=== PATIENT | female | born 1985 | race Hispanic/Latino ===

== ENCOUNTER 2018-06-16 11:19 | Day surgery (SDC) | payer OTHER, MEDICAID, SELFPAY ==
[2018-06-16] VITALS (12 sets, daily range): BP systolic 93–148; BP diastolic 52–72; PULSE 55–101; RESP 10–18; TEMP 36.1–36.8; O2SAT 96–100; BMI 24.0
--- NOTE | 2018-06-16 | PATH_ITS ---
[facility] Accession Number: [id number] . 01 Material submitted: . APPENDIX . 02 Diagnosis: Appendix: Acute appendicitis. MRV/06/18/2018 . 02 Electronically signed: . Lui Trinidad MD, Pathologist NPI- [id number] . 01 Gross description: . Received in formalin, labeled appendix, is an intact appendix (length-4.9 cm, diameter-0.7 cm) with crystal-pink smooth shiny serosa and attached mesoappendix (up to 1.3 cm in depth). The resection margin is received stapled. The lumen contains red-brown solid soft material. The wall is up to 0.2 cm thick. No nodules, masses or lesions are identified. The resection margin is inked black. Section code: (A1) resection margin en face and three additional serial sections; (A2) one-half of the bivalved tip. ([id number]) /MRV . 02 Pathologist provided ICD-10: K35.80 . 02 CPT . 857574 Performed at: 01 [facility] [address] [place] [address], [place], [place] [id number] MD [place] MD Phone: [phone] [facility]formed at: 02 [facility] [address] [place], [place] [id number] MD Yossi Holloway MD Phone: [phone]
[2018-06-16 12:05] LABS: Alanine Aminotransferase 29 IU/L (9-52); Albumin 4.6 g/dL (3.5-5.0); Albumin Globulin Ratio 1.8 (1.0-2.8); Alkaline Phosphatase 40 U/L (38-126); Aspartate Aminotransferase 26 IU/L (14-36); Bilirubin Total 0.8 mg/dL (0.2-1.3); Blood Urea Nitrogen 15 mg/dL (7-17); Calcium 9.6 mg/dL (8.4-10.2); Carbon Dioxide 21 mmol/L (22-32); Chloride 103 mmol/L (98-107); Estimated Glomerular Filt Rate > 60.0 mL/min (>60); Globulin 2.6 g/dL (1.7-4.1); Glucose 111 mg/dL (70-100); HEMOLYSIS < 15 (0-50); Lipase 147 U/L (23-300); Potassium 3.2 mmol/L (3.4-5.1); Sodium 143 mmol/L (137-145); Total Protein 7.2 g/dL (6.3-8.2)
--- NOTE | 2018-06-16 12:05 | ED_ITS ---
HPI - Abdominal Pain <RIDGE Sheffield - Last Filed: 06/16/18 22:36> General Chief Complaint: Abdominal Pain Stated Complaint: STOMACH PAIN/HANDS AND ARMS GOING NUMB Time Seen by Provider: 06/16/18 12:02 Source: patient Mode of arrival: ambulatory Limitations: no limitations History of Present Illness HPI narrative: 32-year-old female with history of asthma that is a nonsmoker here for complaint of having abdominal pain with nausea vomiting and diarrhea that started yesterday. She reports last bowel movement was yesterday and was diarrhea. She denies any urinary symptoms. She denies any stressors relievers of her pain. She does report that she had some numbness and tingling in her hands as she was hyperventilating due to the pain. She denies any fevers. Decreased p.o. intake today due to the nausea and vomiting. No chest pain no shortness of breath MD complaint: abdominal pain Related Data Home Medications Medication Instructions Recorded Confirmed albuterol sulfate [Ventolin HFA] 1 puff INH DIRECTED #0 ea 06/16/16 06/16/18 Previous Rx's Medication Instructions Recorded fluticasone [Flovent HFA] 1 puff INH BID #1 inh 06/16/16 Allergies Allergy/AdvReac Type Severity Reaction Status Date / Time No Known Drug Allergies Allergy Verified 06/16/18 11:32 Review of Systems <RIDGE Sheffield - Last Filed: 06/16/18 22:36> Constitutional Denies chills, Denies fever(s), Denies lethargy and Denies weakness Eyes Denies change in vision, Denies eye discharge, Denies irritation and Denies loss of vision ENT Ears, Nose, Mouth, and Throat: Denies change in voice, Denies neck pain and Denies sore throat Cardiovascular Denies chest pain, Denies irregular heart rhythm, Denies lightheadedness, Denies palpitations, Denies dyspnea, Denies dyspnea on exertion and Denies orthopnea Respiratory Denies cough, Denies dyspnea, Denies dyspnea on exertion and Denies wheezing Gastrointestinal Gastrointestinal: Reports abdominal pain, Reports diarrhea and Reports vomiting Genitourinary Denies hematuria, Denies flank pain, Denies urinary incontinence and Denies urinary urgency Musculoskeletal Denies neck pain Integumentary/Breasts Denies pruritus, Denies erythema, Denies rash and Denies wounds Neurologic Denies confusion, Denies loss of vision and Denies weakness Psychiatric Denies anxiety, Denies confusion, Denies depression, Denies homicidal ideation and Denies suicidal ideation Endocrine Denies palpitations Hematologic/Lymphatic Denies easy bruising Allergic/Immunologic Denies wheezing Exam <RIDGE Sheffield - Last Filed: 06/16/18 22:36> Initial Vital Signs Initial Vital Signs: Vital Signs Temperature 98.1 F 06/16/18 11:30 Pulse Rate 96 H 06/16/18 11:30 Respiratory Rate 18 06/16/18 11:30 Blood Pressure 148/72 H 06/16/18 11:30 Pulse Oximetry 100 06/16/18 11:30 Const General: cooperative and well developed Nutritional Appearance: well nourished Orientation: alert, awake, oriented x3 and not confused HENMT Mouth: oral mucosae normal and moist mucous membranes Eyes Conjunctivae: conjunctivae normal Sclera: sclerae normal Pupils: PERRL EOM: EOM intact bilaterally Resp Effort & Inspection: normal respiratory effort, able to speak in complete sentences, no respiratory distress and no use of accessory muscles Auscultation: clear to auscultation bilaterally, no rales, no rhonchi and no wheezes Cardio Rate: regular rate Rhythm: regular rhythm Heart Sounds: no click, no gallops, no murmurs and no rubs GI Other: Generalized abdominal pain with pain greater to upper abdomen General: No CVA tenderness Skin General: no rashes or lesions noted, No jaundice and No petechiae Neuro General: alert, oriented x3, gait normal and no focal motor deficits Speech: speech normal <Hari Cruz DO - Last Filed: 06/17/18 07:21> Initial Vital Signs Initial Vital Signs: Vital Signs Temperature 98.1 F 06/16/18 11:30 Pulse Rate 96 H 06/16/18 11:30 Respiratory Rate 18 06/16/18 11:30 Blood Pressure 148/72 H 06/16/18 11:30 Pulse Oximetry 100 06/16/18 11:30 Course <RIDGE Sheffield - Last Filed: 06/16/18 22:36> Orders Ordered: Docusate Sodium (Colace) 100 mg PO BID PRN PRN Reason: Constipation Enoxaparin Sodium (Lovenox) 40 mg SUBCUT DAILY MIO Hydromorphone HCl (Dilaudid) 1 mg IV Q4HR PRN PRN Reason: Pain, Severe (7-10) Last Admin: 06/16/18 23:36 Dose: 1 mg Admin: 06/16/18 18:02 Dose: 1 mg Lactated Ringer's (Lactated Ringers) 1,000 mls @ 100 mls/hr IV CONT MIO Last Admin: 06/16/18 18:02 Dose: 100 mls/hr Piperacillin/Tazobactam/Dextrose (Zosyn) 3.375 gm in 50 mls @ 100 mls/hr IV Q6H MIO Last Infusion: 06/17/18 02:45 Dose: 0 mls/hr Admin: 06/17/18 02:03 Dose: 100 mls/hr Infusion: 06/16/18 21:05 Dose: 100 mls/hr Admin: 06/16/18 20:33 Dose: 100 mls/hr Oxycodone/Acetaminophen (Percocet 5/325) 1 tab PO Q3H PRN PRN Reason: Pain, Moderate (4-6) Last Admin: 06/17/18 06:53 Dose: 1 tab Admin: 06/17/18 00:47 Dose: 1 tab Admin: 06/16/18 20:34 Dose: 1 tab Pantoprazole Sodium (Protonix) 40 mg IV DAILY MIO Discontinued Medications Albuterol (Ventolin) 2.5 mg INH NOW PRN PRN Reason: Coughing, Wheezing, Dyspnea Bupivacaine HCl (Sensorcaine 0.5% (Pf)) 30 ml INJ NOW ONE Stop: 06/16/18 16:30 Last Admin: 06/16/18 16:33 Dose: 20 ml Fentanyl (Sublimaze) 50 mcg IV Q5MIN PRN PRN Reason: Pain, Moderate (4-6) Hydromorphone HCl (Dilaudid) 1 mg IV NOW ONE Stop: 06/16/18 12:21 Last Admin: 06/16/18 12:37 Dose: 1 mg Hydromorphone HCl (Dilaudid) 0.5 mg IV Q5MIN PRN PRN Reason: Pain, Moderate (4-6) Sodium Chloride (Normal Saline 0.9%) 1,000 mls @ 1,000 mls/hr IV BOLUS ONE Stop: 06/16/18 12:52 Last Infusion: 06/16/18 13:53 Dose: 0 mls/hr Admin: 06/16/18 12:08 Dose: 1,000 mls/hr Piperacillin/Tazobactam/Dextrose (Zosyn) 3.375 gm in 50 mls @ 100 mls/hr IV NOW ONE Stop: 06/16/18 14:22 Last Infusion: 06/16/18 14:43 Dose: 0 mls/hr Admin: 06/16/18 14:16 Dose: 100 mls/hr Lactated Ringer's (Lactated Ringers) 1,000 mls @ 42 mls/hr IV CONT MIO Last Infusion: 06/16/18 17:23 Dose: 0 mls/hr Admin: 06/16/18 15:45 Dose: 42 mls/hr Lidocaine/Epinephrine (Xylocaine 1% W/Epi) 4 ml INJ NOW ONE Stop: 06/16/18 16:30 Last Admin: 06/16/18 16:30 Dose: 20 ml Meperidine HCl (Demerol) 25 mg IV Q5MIN PRN PRN Reason: Pain or shivering Metoclopramide HCl (Reglan) 10 mg IV NOW PRN PRN Reason: Nausea And Vomiting Ondansetron HCl (Zofran) 4 mg IV NOW ONE Stop: 06/16/18 11:42 Last Admin: 06/16/18 12:08 Dose: 4 mg Ondansetron HCl (Zofran) 4 mg IV NOW PRN PRN Reason: Nausea And Vomiting Oxycodone/Acetaminophen (Percocet 5/325) 1 tab PO Q30MIN PRN PRN Reason: Mild or moderate pain Vital Signs - 8 hr 06/17/18 00:46 06/17/18 05:12 Temperature 98.1 F 98.0 F Pulse Rate 56 L 62 Respiratory Rate 15 15 Blood Pressure 103/64 114/52 L Pulse Oximetry 98 99 <Hari Cruz DO - Last Filed: 06/17/18 07:21> Orders Ordered: Docusate Sodium (Colace) 100 mg PO BID PRN PRN Reason: Constipation Enoxaparin Sodium (Lovenox) 40 mg SUBCUT DAILY [facility] Hydromorphone HCl (Dilaudid) 1 mg IV Q4HR PRN PRN Reason: Pain, Severe (7-10) Last Admin: 06/16/18 23:36 Dose: 1 mg Admin: 06/16/18 18:02 Dose: 1 mg Lactated Ringer's (Lactated Ringers) 1,000 mls @ 100 mls/hr IV CONT MIO Last Admin: 06/16/18 18:02 Dose: 100 mls/hr Piperacillin/Tazobactam/Dextrose (Zosyn) 3.375 gm in 50 mls @ 100 mls/hr IV Q6H MIO Last Infusion: 06/17/18 02:45 Dose: 0 mls/hr Admin: 06/17/18 02:03 Dose: 100 mls/hr Infusion: 06/16/18 21:05 Dose: 100 mls/hr Admin: 06/16/18 20:33 Dose: 100 mls/hr Oxycodone/Acetaminophen (Percocet 5/325) 1 tab PO Q3H PRN PRN Reason: Pain, Moderate (4-6) Last Admin: 06/17/18 06:53 Dose: 1 tab Admin: 06/17/18 00:47 Dose: 1 tab Admin: 06/16/18 20:34 Dose: 1 tab Pantoprazole Sodium (Protonix) 40 mg IV DAILY MIO Discontinued Medications Albuterol (Ventolin) 2.5 mg INH NOW PRN PRN Reason: Coughing, Wheezing, Dyspnea Bupivacaine HCl (Sensorcaine 0.5% (Pf)) 30 ml INJ NOW ONE Stop: 06/16/18 16:30 Last Admin: 06/16/18 16:33 Dose: 20 ml Fentanyl (Sublimaze) 50 mcg IV Q5MIN PRN PRN Reason: Pain, Moderate (4-6) Hydromorphone HCl (Dilaudid) 1 mg IV NOW ONE Stop: 06/16/18 12:21 Last Admin: 06/16/18 12:37 Dose: 1 mg Hydromorphone HCl (Dilaudid) 0.5 mg IV Q5MIN PRN PRN Reason: Pain, Moderate (4-6) Sodium Chloride (Normal Saline 0.9%) 1,000 mls @ 1,000 mls/hr IV BOLUS ONE Stop: 06/16/18 12:52 Last Infusion: 06/16/18 13:53 Dose: 0 mls/hr Admin: 06/16/18 12:08 Dose: 1,000 mls/hr Piperacillin/Tazobactam/Dextrose (Zosyn) 3.375 gm in 50 mls @ 100 mls/hr IV NOW ONE Stop: 06/16/18 14:22 Last Infusion: 06/16/18 14:43 Dose: 0 mls/hr Admin: 06/16/18 14:16 Dose: 100 mls/hr Lactated Ringer's (Lactated Ringers) 1,000 mls @ 42 mls/hr IV CONT MIO Last Infusion: 06/16/18 17:23 Dose: 0 mls/hr Admin: 06/16/18 15:45 Dose: 42 mls/hr Lidocaine/Epinephrine (Xylocaine 1% W/Epi) 4 ml INJ NOW ONE Stop: 06/16/18 16:30 Last Admin: 06/16/18 16:30 Dose: 20 ml Meperidine HCl (Demerol) 25 mg IV Q5MIN PRN PRN Reason: Pain or shivering Metoclopramide HCl (Reglan) 10 mg IV NOW PRN PRN Reason: Nausea And Vomiting Ondansetron HCl (Zofran) 4 mg IV NOW ONE Stop: 06/16/18 11:42 Last Admin: 06/16/18 12:08 Dose: 4 mg Ondansetron HCl (Zofran) 4 mg IV NOW PRN PRN Reason: Nausea And Vomiting Oxycodone/Acetaminophen (Percocet 5/325) 1 tab PO Q30MIN PRN PRN Reason: Mild or moderate pain Vital Signs - 8 hr 06/17/18 00:46 06/17/18 05:12 Temperature 98.1 F 98.0 F Pulse Rate 56 L 62 Respiratory Rate 15 15 Blood Pressure 103/64 114/52 L Pulse Oximetry 98 99 MDM - Abdominal Pain <RIDGE Sheffield - Last Filed: 06/16/18 22:36> Lab Data Result diagrams: 06/16/18 10:46 06/16/18 10:46 Lab Results 06/16/18 06/16/18 06/16/18 Range/Units 10:46 10:46 10:46 WBC 23.4 H (4.5-11.0) X10^3/uL RBC 4.44 (4.0-5.2) X10^6/uL Hgb 13.8 (12.0-16.0) g/dL Hct 41.4 (36-46) % MCV 93.2 (80-100) fL MCH 31.0 (26-34) PG MCHC 33.3 (30-36) % RDW 12.8 (11.6-14.8) % Plt Count 363 (150-400) X10^3/uL Neut % (Auto) 74.1 (50-75) % Lymph % (Auto) 20.1 L (25-40) % [place] % (Auto) 5.1 (3-14) % Eos % (Auto) 0.3 L (2-4) % Baso % (Auto) 0.4 (0-2) % Neut # (Auto) 50063 H (3430-3734) /uL PT 12.7 (10.1-12.7) SECONDS INR 1.2 (0.9-1.3) APTT 25 L (26.4-36.2) SECONDS Sodium 143 (137-145) mmol/L Potassium 3.2 L (3.4-5.1) mmol/L Chloride 103 (98-107) mmol/L Carbon Dioxide 21 L (22-32) mmol/L BUN 15 (7-17) mg/dL Creatinine 0.60 (0.52-1.04) mg/dL Estimated GFR > 60.0 (>60) mL/min BUN/Creatinine Ratio 25.0 H (6-22) Glucose 111 H (70-100) mg/dL Calcium 9.6 (8.4-10.2) mg/dL Total Bilirubin 0.8 (0.2-1.3) mg/dL AST 26 (14-36) IU/L ALT 29 (9-52) IU/L Alkaline Phosphatase 40 (38-126) U/L Total Protein 7.2 (6.3-8.2) g/dL Albumin 4.6 (3.5-5.0) g/dL Globulin 2.6 (1.7-4.1) g/dL Albumin/Globulin Ratio 1.8 (1.0-2.8) Lipase 147 (23-300) U/L Urine RBC (0-5/HPF) Urine WBC (0-5/HPF) Amorphous Sediment Urine Bacteria (None) Ur Culture Indicated? Micro UA Comment 06/16/18 Range/Units 13:15 WBC (4.5-11.0) X10^3/uL RBC (4.0-5.2) X10^6/uL Hgb (12.0-16.0) g/dL Hct (36-46) % MCV (80-100) fL MCH (26-34) PG MCHC (30-36) % RDW (11.6-14.8) % Plt Count (150-400) X10^3/uL Neut % (Auto) (50-75) % Lymph % (Auto) (25-40) % [place] % (Auto) (3-14) % Eos % (Auto) (2-4) % Baso % (Auto) (0-2) % Neut # (Auto) (9867-9853) /uL PT (10.1-12.7) SECONDS INR (0.9-1.3) APTT (26.4-36.2) SECONDS Sodium (137-145) mmol/L Potassium (3.4-5.1) mmol/L Chloride (98-107) mmol/L Carbon Dioxide (22-32) mmol/L BUN (7-17) mg/dL Creatinine (0.52-1.04) mg/dL Estimated GFR (>60) mL/min BUN/Creatinine Ratio (6-22) Glucose (70-100) mg/dL Calcium (8.4-10.2) mg/dL Total Bilirubin (0.2-1.3) mg/dL AST (14-36) IU/L ALT (9-52) IU/L Alkaline Phosphatase (38-126) U/L Total Protein (6.3-8.2) g/dL Albumin (3.5-5.0) g/dL Globulin (1.7-4.1) g/dL Albumin/Globulin Ratio (1.0-2.8) Lipase (23-300) U/L Urine RBC None seen (0-5/HPF) Urine WBC None seen (0-5/HPF) Amorphous Sediment 2+ Urine Bacteria None seen (None) Ur Culture Indicated? Cult not indicated Micro UA Comment Not Reportable Point of care testing: Point of Care Testing Test Results Negative Urine Dip Bedside Urine Glucose Negative Bedside Urine Bilirubin - Negative Bedside Urine Ketone +++ 80 Urine Specific [place] 1.020 Bedside Urine Occult Blood +/- Bedside Urine pH 7.5 Bedside Urine Protein +/- 15 Bedside Urine Urobilinogen - Negative Bedside Urine Nitrite - Negative Bedside Urine Leukocytes - Negative Esterase ECG Data Interpretation: EKG shows sinus bradycardia with no ST elevation or depression. No ectopy. Ventricular rate of 46. Pr interval of 140. QRS duration 97. QT of 506. MDM Narrative Medical decision making narrative: CBC shows elevated white count. Chem panel was obtained and was unremarkable. CT of the abdomen was obtained and shows signs of appendicitis with possible small starting abscess adjacent to the appendix. Discussed case with Dr. Jt laguerre who plans on taking patient to OR. She was started on Zosyn in the emergency room. <Hari Cruz, - Last Filed: 06/17/18 07:21> Lab Data Lab Results 06/16/18 06/16/18 06/16/18 Range/Units 10:46 10:46 10:46 WBC 23.4 H (4.5-11.0) X10^3/uL RBC 4.44 (4.0-5.2) X10^6/uL Hgb 13.8 (12.0-16.0) g/dL Hct 41.4 (36-46) % MCV 93.2 (80-100) fL MCH 31.0 (26-34) PG MCHC 33.3 (30-36) % RDW 12.8 (11.6-14.8) % Plt Count 363 (150-400) X10^3/uL Neut % (Auto) 74.1 (50-75) % Lymph % (Auto) 20.1 L (25-40) % [place] % (Auto) 5.1 (3-14) % Eos % (Auto) 0.3 L (2-4) % Baso % (Auto) 0.4 (0-2) % Neut # (Auto) 30854 H (3951-9774) /uL PT 12.7 (10.1-12.7) SECONDS INR 1.2 (0.9-1.3) APTT 25 L (26.4-36.2) SECONDS Sodium 143 (137-145) mmol/L Potassium 3.2 L (3.4-5.1) mmol/L Chloride 103 (98-107) mmol/L Carbon Dioxide 21 L (22-32) mmol/L BUN 15 (7-17) mg/dL Creatinine 0.60 (0.52-1.04) mg/dL Estimated GFR > 60.0 (>60) mL/min BUN/Creatinine Ratio 25.0 H (6-22) Glucose 111 H (70-100) mg/dL Calcium 9.6 (8.4-10.2) mg/dL Total Bilirubin 0.8 (0.2-1.3) mg/dL AST 26 (14-36) IU/L ALT 29 (9-52) IU/L Alkaline Phosphatase 40 (38-126) U/L Total Protein 7.2 (6.3-8.2) g/dL Albumin 4.6 (3.5-5.0) g/dL Globulin 2.6 (1.7-4.1) g/dL Albumin/Globulin Ratio 1.8 (1.0-2.8) Lipase 147 (23-300) U/L Urine RBC (0-5/HPF) Urine WBC (0-5/HPF) Amorphous Sediment Urine Bacteria (None) Ur Culture Indicated? Micro UA Comment 06/16/18 Range/Units 13:15 WBC (4.5-11.0) X10^3/uL RBC (4.0-5.2) X10^6/uL Hgb (12.0-16.0) g/dL Hct (36-46) % MCV (80-100) fL MCH (26-34) PG MCHC (30-36) % RDW (11.6-14.8) % Plt Count (150-400) X10^3/uL Neut % (Auto) (50-75) % Lymph % (Auto) (25-40) % [place] % (Auto) (3-14) % Eos % (Auto) (2-4) % Baso % (Auto) (0-2) % Neut # (Auto) (1611-5201) /uL PT (10.1-12.7) SECONDS INR (0.9-1.3) APTT (26.4-36.2) SECONDS Sodium (137-145) mmol/L Potassium (3.4-5.1) mmol/L Chloride (98-107) mmol/L Carbon Dioxide (22-32) mmol/L BUN (7-17) mg/dL Creatinine (0.52-1.04) mg/dL Estimated GFR (>60) mL/min BUN/Creatinine Ratio (6-22) Glucose (70-100) mg/dL Calcium (8.4-10.2) mg/dL Total Bilirubin (0.2-1.3) mg/dL AST (14-36) IU/L ALT (9-52) IU/L Alkaline Phosphatase (38-126) U/L Total Protein (6.3-8.2) g/dL Albumin (3.5-5.0) g/dL Globulin (1.7-4.1) g/dL Albumin/Globulin Ratio (1.0-2.8) Lipase (23-300) U/L Urine RBC None seen (0-5/HPF) Urine WBC None seen (0-5/HPF) Amorphous Sediment 2+ Urine Bacteria None seen (None) Ur Culture Indicated? Cult not indicated Micro UA Comment Not Reportable Point of care testing: Point of Care Testing Test Results Negative Urine Dip Bedside Urine Glucose Negative Bedside Urine Bilirubin - Negative Bedside Urine Ketone +++ 80 Urine Specific [place] 1.020 Bedside Urine Occult Blood +/- Bedside Urine pH 7.5 Bedside Urine Protein +/- 15 Bedside Urine Urobilinogen - Negative Bedside Urine Nitrite - Negative Bedside Urine Leukocytes - Negative Esterase Discharge Plan Departure Patient Disposition: Admitted As Inpatient Clinical Impression: Acute appendicitis Discharge Date/Time: 06/16/18 14:43 Interventions: ED Discharge Assessment Last Done: 06/16/18 14:42 Admit Date/Time: 06/16/18 14:17 Admit Provider: Ashley Waters <Hari Cruz DO - Last Filed: 06/17/18 07:21> [facility] Attending [place] Attestation: I was available for consultation during this patient's emergency department encounter
[2018-06-16 12:06] LABS: Add Manual Diff / Slide Review NO; Basophils Percent Auto 0.4 % (0-2); Eosinophils Percent Auto 0.3 % (2-4); Hematocrit 41.4 % (36-46); Hemoglobin 13.8 g/dL (12.0-16.0); INR 1.2 (0.9-1.3); Lymphocytes Percent Auto 20.1 % (25-40); Mean Corpuscular HGB Conc 33.3 % (30-36); Mean Corpuscular Volume 93.2 fL (80-100); Monocytes Percent Auto 5.1 % (3-14); Neutrophils Absolute Auto 17300 /uL (3000-5900); Neutrophils Percent Auto 74.1 % (50-75); Platelet Count 363 X10^3/uL (150-400); Prothrombin Time 12.7 SECONDS (10.1-12.7); Red Blood Cell Count 4.44 X10^6/uL (4.0-5.2); Red Cell Distribution Width 12.8 % (11.6-14.8); White Blood Cell Count 23.4 X10^3/uL (4.5-11.0)
[2018-06-16] MEDS: ONDANSETRON 4 MG/2 ML INJ IV (12:08)
[2018-06-16] MEDS: SODIUM CHLORIDE 0.9% 1,000 ML 1000 ML IV (12:08)
[2018-06-16 12:09] LABS: PTT Partial Thromboplastin Tim 25 SECONDS (26.4-36.2)
[2018-06-16] MEDS: HYDROMORPHONE 1 MG INJ IV ×3 (12:37→23:36)
--- NOTE | 2018-06-16 13:04 | DI.CT.S_ITS ---
PROCEDURE: CT ABDOMEN PELVIS W CON INDICATIONS: Abdominal pain with vomiting TECHNIQUE: After the administration of intravenous contrast, 5 mm thick sections acquired from the diaphragm to the symphysis. 5 mm coronal and sagittal reformats were acquired. For radiation dose reduction, the following was used: automated exposure control, adjustment of mA and/or kV according to patient size. COMPARISON: None. FINDINGS: Image quality: Excellent. ABDOMEN: Lung bases: Lung bases are clear. Heart size is normal. Solid organs: Liver is normal in size and enhancement. Gallbladder negative. Biliary system is non dilated. Pancreas enhances normally. Spleen is normal in size and enhancement. No adrenal nodules. Kidneys demonstrate normal size and enhancement, without hydronephrosis. Peritoneum and bowel: No free air identified. The appendix is enlarged measuring approximately 9-10 mm diameter and there is mucosal hyperenhancement. There is adjacent parapatellar fat stranding in keeping with acute appendicitis. Additionally, on image 59 series 2 there is a possible phlegmon versus developing abscess adjacent to the appendix. This measures approximately 3.0 x 1.0 cm. Unclear if this reflects sequela from contained perforation. No appendicolith is seen. Mild pelvic long segment small bowel wall thickening may be reactive although unclear etiology. Cannot exclude isolated enteritis Nodes and vessels: No retroperitoneal or mesenteric adenopathy by size criteria. Aorta and inferior vena cava are normal in size. Miscellaneous: No ventral hernias. PELVIS: Genitourinary: Bladder is partially decompressed otherwise unremarkable. Miscellaneous: No inguinal hernias or adenopathy. Bones: No suspicious bony lesions. No vertebral body compression fractures. IMPRESSION: Acute appendicitis. Possible 1 x 3 cm periappendiceal complex fluid collection possibly phlegmon versus developing abscess. This could potentially reflect contained perforation although no free air seen. Please correlate clinically. Mild adjacent small bowel wall thickening which could be reactive versus isolated enteritis. Findings were personally telephoned to Cornelio SABILLON in the emergency department 13:42 hours on 06/16/18. Dictated by: Cliff Gomes M.D. on 06/16/2018 at 13:34 Approved by: Cliff Gomes M.D. on 06/16/2018 at 13:44
[2018-06-16 13:17] LABS: Bacteria Urine None Seen; RBC Urine None Seen (0-5/HPF); WBC Urine None Seen (0-5/HPF)
[2018-06-16 13:41] LABS: Amorphous Sediment Urine 2+; Culture Indicated Urine Cult Not Indicated
[2018-06-16] MEDS: PIPERACILLIN-TAZO 3.375 GM/50 ML FROZ.PIGGY IV ×2 (14:16→20:33)
--- NOTE | 2018-06-16 14:27 | PC.NURSE ---
OR DOC AT BEDSIDE
--- NOTE | 2018-06-16 15:10 | P.HP_ITS ---
History of Present Illness Date Patient Seen: 06/16/18 Time Patient Seen: 15:08 Chief complaint: STOMACH PAIN/HANDS AND ARMS GOING NUMB Narrative: Very pleasant and healthy 32-year-old lady whose had about 12-18 hours of lower abdominal pain. She says it started as a generalized discomfort and crampy feeling but has since localized to the right lower quadrant. She endorses anorexia but she has not had any vomiting. She was seen and evaluated by the emergency room staff and found to have acute appendicitis. I have been consulted for definitive management. Patient History Surgical History Status post delivery (11/06/11) Family & Social History Family History: Reviewed 06/16/18 by Ashley Waters MD Social History: household members significant other Safety & Behavioral: Feels Safe in Current Yes Environment Been Physically Hurt or No Threatened By a Person Tobacco & Substance use: Smoking Status Never smoker alcohol intake frequency 0-2 drinks per day Substance Use Type does not use Meds Home Medications Medication Instructions Recorded Confirmed Type albuterol sulfate [Ventolin HFA] 1 puff INH DIRECTED #0 ea 06/16/16 06/16/18 History fluticasone [Flovent HFA] 1 puff INH BID #1 inh 06/16/16 06/16/18 Rx Allergies Allergy/AdvReac Type Severity Reaction Status Date / Time No Known Drug Allergies Allergy Verified 06/16/18 11:32 Review of Systems Review of Systems All systems reviewed & are unremarkable except as noted in HPI and below Exam Vital Signs (past 8 hours): - 06/16/18 11:30 06/16/18 14:40 06/16/18 14:53 Temperature 98.1 F 98.3 F Pulse Rate 96 H 60 64 Respiratory Rate 18 16 12 Blood Pressure 148/72 H 104/67 Blood Pressure [Right Arm] 106/61 Pulse Oximetry 100 97 98 Oxygen Delivery Method Room Air Narrative Exam Narrative: Very pleasant, well-nourished well-developed lady in mild distress HEENT: Normocephalic and atraumatic, pupils equal round reactive to light accommodation with anicteric sclera Lungs: Clear to auscultation bilaterally Heart: Regular rate and rhythm without murmur rub or gallop Abdomen: Soft, globally tender to palpation with positive Rovsing sign and voluntary guarding. Small umbilical hernia is appreciated. No other incisions are appreciated. No abdominal masses are appreciated. Extremities: Warm and well perfused without edema Objective Labs Result Diagrams: 06/16/18 10:46 06/16/18 10:46 Labs: Laboratory Results - last 24 hr 06/16/18 06/16/18 06/16/18 10:46 10:46 10:46 WBC 23.4 H RBC 4.44 Hgb 13.8 Hct 41.4 MCV 93.2 MCH 31.0 MCHC 33.3 RDW 12.8 Plt Count 363 Neut % (Auto) 74.1 Lymph % (Auto) 20.1 L [place] % (Auto) 5.1 Eos % (Auto) 0.3 L Baso % (Auto) 0.4 Neut # (Auto) 09900 H PT 12.7 INR 1.2 APTT 25 L Sodium 143 Potassium 3.2 L Chloride 103 Carbon Dioxide 21 L BUN 15 Creatinine 0.60 Estimated GFR > 60.0 BUN/Creatinine Ratio 25.0 H Glucose 111 H Calcium 9.6 Total Bilirubin 0.8 AST 26 ALT 29 Alkaline Phosphatase 40 Total Protein 7.2 Albumin 4.6 Globulin 2.6 Albumin/Globulin Ratio 1.8 Lipase 147 Urine RBC Urine WBC Amorphous Sediment Urine Bacteria Ur Culture Indicated? Micro UA Comment 06/16/18 13:15 WBC RBC Hgb Hct MCV MCH MCHC RDW Plt Count Neut % (Auto) Lymph % (Auto) [place] % (Auto) Eos % (Auto) Baso % (Auto) Neut # (Auto) PT INR APTT Sodium Potassium Chloride Carbon Dioxide BUN Creatinine Estimated GFR BUN/Creatinine Ratio Glucose Calcium Total Bilirubin AST ALT Alkaline Phosphatase Total Protein Albumin Globulin Albumin/Globulin Ratio Lipase Urine RBC None seen Urine WBC None seen Amorphous Sediment 2+ Urine Bacteria None seen Ur Culture Indicated? Cult not indicated Micro UA Comment Not Reportable Assessment & Plan Plan: Assessment/Plan Narrative: [address] [address] [address] Scan Report Signed Patient: Sarahi De La Fuente MR#: [id number] : 1985 Acct:[id number] Age/Sex: 32 / F Date of Service: 06/16/18 Loc: ED Accession Number: [id number] Procedure: CT abdomen pelvis w con Ordering Provider: Cornelio Sparrow PROCEDURE: CT ABDOMEN PELVIS W CON INDICATIONS: Abdominal pain with vomiting TECHNIQUE: After the administration of intravenous contrast, 5 mm thick sections acquired from the diaphragm to the symphysis. 5 mm coronal and sagittal reformats were acquired. For radiation dose reduction, the following was used: automated exposure control, adjustment of mA and/or kV according to patient size. COMPARISON: None. FINDINGS: Image quality: Excellent. ABDOMEN: Lung bases: Lung bases are clear. Heart size is normal. Solid organs: Liver is normal in size and enhancement. Gallbladder negative. Biliary system is non dilated. Pancreas enhances normally. Spleen is normal in size and enhancement. No adrenal nodules. Kidneys demonstrate normal size and enhancement, without hydronephrosis. Peritoneum and bowel: No free air identified. The appendix is enlarged measuring approximately 9-10 mm diameter and there is mucosal hyperenhancement. There is adjacent parapatellar fat stranding in keeping with acute appendicitis. Additionally, on image 59 series 2 there is a possible phlegmon versus developing abscess adjacent to the appendix. This measures approximately 3.0 x 1.0 cm. Unclear if this reflects sequela from contained perforation. No appendicolith is seen. Mild pelvic long segment small bowel wall thickening may be reactive although unclear etiology. Cannot exclude isolated enteritis Nodes and vessels: No retroperitoneal or mesenteric adenopathy by size criteria. Aorta and inferior vena cava are normal in size. Miscellaneous: No ventral hernias. PELVIS: Genitourinary: Bladder is partially decompressed otherwise unremarkable. Miscellaneous: No inguinal hernias or adenopathy. Bones: No suspicious bony lesions. No vertebral body compression fractures. IMPRESSION: Acute appendicitis. Possible 1 x 3 cm periappendiceal complex fluid collection possibly phlegmon versus developing abscess. This could potentially reflect contained perforation although no free air seen. Please correlate clinically. Mild adjacent small bowel wall thickening which could be reactive versus isolated enteritis. Findings were personally telephoned to Cornelio SABILLON in the emergency department 13:42 hours on 06/16/18. Dictated by: Cliff Gomes M.D. on 06/16/2018 at 13:34 Approved by: Cliff Gomes M.D. on 06/16/2018 at 13:44 Acute appendicitis in the setting of an otherwise healthy 32-year-old lady. Plan we discussed the risks and benefits of laparoscopy with appendectomy and the patient expressed a desire to have the procedure.
[2018-06-16] MEDS: LACTATED RINGERS 1,000 ML 42 ML IV (15:45)
--- NOTE | 2018-06-16 16:11 | SUR.OPER ---
Supine on padded OR bed, head on pillow, arms secured on padded arm boards at <90 degrees abduction, legs uncrossed, safety belt at thigh, tape over blanket over lower legs.
[2018-06-16] MEDS: LIDOCAINE 1% W/EPI INJ 4 ML INJ (16:30)
[2018-06-16] MEDS: BUPIVACAINE 0.5% (PF) VIAL 30 ML INJ (16:33)
--- NOTE | 2018-06-16 16:50 | PM.OP.1 ---
Operative Date/Time/Diagnoses Date of procedure: 06/16/18 Time of procedure: 16:50 Pre-op diagnosis: Acute Appendicitis Post-op diagnosis: same Procedure & Clinicians Procedure: Laparoscopy with Appendectomy and Umbilical Hernia Repair Same procedure as scheduled: Yes Indications: Acute appendicitis Surgeon: Ashley Waters Click Yes if Unassisted: Yes Anesthesia Type: General (Bertoni) Operative Notes Findings: 1. Incarcerated umbilical hernia containing only preperitoneal fat 2. Acute appendicitis without abscess or perforation Closure Type: primary Specimen(s): other Estimated Blood Loss (mL): 5 Blood products transfused: none Procedure in detail: After obtaining informed consent, the patient was brought to the operating room and placed in the supine position on the operating table. Following successful induction of general endotracheal anesthesia, appropriate padding of all neo prominences, and placement of appropriate monitors, the abdomen was prepped and draped in the standard surgical fashion. A timeout was held per SCOAP protocol. Following infiltration with local anesthetic to create a field block, an incision was created through the umbilicus at the site of the palpable and visible hernia and carried down through the skin and subcutaneous tissue to reveal the fascia below. 2-0 Vicryl retention sutures were placed on either side of midline and the abdomen was entered under direct vision using an 11 blade scalpel. A 12 mm blunt-tipped Brooks trocar was placed in the abdominal cavity and it was insufflated to 15 mmHg pressure. The patient was placed in Trendelenburg position with the left side rotated toward the floor. Under direct vision, a second 5 mm trocar was placed in the right upper quadrant and a third 5 mm trocar was placed midway between the umbilicus and the pubis. The camera was placed in the abdominal cavity and we immediately visualized the appendix in the anti-cecal position. The appendix was grasped and elevated to reveal its attachment to the cecum. 3 loads of a laparoscopic stapling device were used to liberate the appendix and its mesentery from its attachment to the cecum. The specimen was placed in a bag and removed via the umbilical port. The wounds were checked for hemostasis. The operative site was visualized and irrigated with warm saline solution. The abdomen was aspirated free of all fluid and particulate matter. The trochars were removed under direct vision. The abdomen was desufflated by giving the patient a large Valsalva maneuver. The umbilical incision was closed in 2 layers with Vicryl and Monocryl suture. Monocryl sutures were placed in the other 2 port sites. All sponge, needle, and instrument counts were correct at the conclusion of the case. The patient was allowed to awaken from anesthesia without difficulty and taken to the post-anesthesia care unit in good condition. Complications: none Condition: stable Disposition: PACU Plan for aftercare: Admit to acute care for continued convalescence and antibiotics
--- NOTE | 2018-06-16 17:38 | SUR.PHASEI ---
stable pacu stay, transfered to ac and left in stable condition.
[2018-06-16] MEDS: LACTATED RINGERS 1,000 ML 100 ML IV (18:02)
--- NOTE | 2018-06-16 18:36 | PC.NURSE ---
Kelsey shift note: Patient admitted to from recovery, S/P lap appendectomy by Dr. Waters. Patient awake, alert, and pleasant. Incisions x 3 to abdomen, with dermabond, well approximated. Abdomen slightly distended, hypo active BS, and tender. No nausea or vomiting. Medicated for pain as ordered, IV DIlaudid. IVF infusing, SCDs in place. Call light within reach, at bedside providing supportive care.
[2018-06-16] MEDS: OXYCODONE/ACETAMINOPHEN 5/325 TABLET 1 TAB PO (20:34)
[2018-06-17 00:46] VITALS: BP 103/64; PULSE 56; RESP 15; TEMP 36.7; O2SAT 98
[2018-06-17] MEDS: OXYCODONE/ACETAMINOPHEN 5/325 TABLET 1 TAB PO ×4 (00:47→13:15)
[2018-06-17] MEDS: PIPERACILLIN-TAZO 3.375 GM/50 ML FROZ.PIGGY IV ×2 (02:03→07:56)
[2018-06-17 05:12] VITALS: BP 114/52; PULSE 62; RESP 15; TEMP 36.7; O2SAT 99
[2018-06-17 07:25] VITALS: BP 117/64; PULSE 74; RESP 16; TEMP 36.9; O2SAT 98
[2018-06-17] MEDS: LACTATED RINGERS 1,000 ML 100 ML IV (07:42)
[2018-06-17] MEDS: DOCUSATE 100 MG CAPSULE PO (07:56)
[2018-06-17] MEDS: PANTOPRAZOLE 40 MG VIAL IV (07:59)
[2018-06-17] MEDS: ENOXAPARIN 40 MG/0.4 ML SYRINGE SUBCUT (07:59)
[2018-06-17] MEDS: HYDROMORPHONE 1 MG INJ IV (09:41)
[2018-06-17 11:30] VITALS: BP 128/75; PULSE 70; RESP 18; TEMP 36.8; O2SAT 99
--- NOTE | 2018-06-17 13:02 | PC.NURSE ---
Addendum entered by Lary Kraus R.N. 06/17/18 14:15: Reviewed verbal and written discharge instructions with pt and her . All questions answered. Reviewed discharge packet, aware of F/U appt. Pt left unit via wheelchair in no distress with all belongings, with at side to drive home. Original Note: Day Shift- Pt reports pain to right side abd and intermittently radiating to right shoulder. Percocet 1 tab prn given at 0700 & 1005 with satisfactory effect. Pt had one time intense pain also radiating to right shoulder, guarding and facial grimacing in bed at 0930, Relieved with prn Dilaudid at 0935. Pt ambulated in halls with SBA at 1010, tolerated well, walked from [address] Waters in to see pt around 1210, okay for discharge today, diet increased, plan for regular diet for lunch, pain meds, then discharge home. Pt's present to take pt home. Reviewed pain management, diet, mobility, limiting lifting to 10 lbs or less, walking ok, encouraged fluids to maintain bowel function.
== END 2018-06-17 14:15 | disposition home or self-care (01) ==
LOC: ED 14:08 → AC 16:12 → OR 06-17 16:41
PROVIDERS: Emergency Medicine; Emergency Provider Nurse Practitioner Family; Family Provider Family Medicine; PCP Family Medicine; Visit Provider Surgery
PROC: 0DTJ4ZZ Resection of Appendix, Percutaneous Endoscopic Approach (ICD-10-PCS; CPT 44970; principal; 2018-06-16 15:30)
PROC: (CPT 44970; 2018-06-16 15:30)
DX: K35.80 Unspecified acute appendicitis (principal); K42.9 Umbilical hernia without obstruction or gangrene
CPT/HCPCS: 44970; 36591; 74177; 80053; 81003; 81015; 81025; 83690; 85025; 85610; 85730; 88304; 93005; 96361; 96365; 96375; 99283; 99285; C9113; J0330; J1100; J1170; J1650; J1885; J2250; J2405; J2543; J2704; J3010; Q9967

== ENCOUNTER 2018-08-06 13:23 | Emergency (ER) | payer OTHER, MEDICAID, SELFPAY ==
[2018-06-16 17:41] VITALS: BMI 24.0
[2018-08-06 13:30] VITALS: BP 130/81; PULSE 113; RESP 22; TEMP 36.7; O2SAT 98
--- NOTE | 2018-08-06 13:32 | DI.RAD.S_ITS ---
PROCEDURE: XR CHEST 2V INDICATIONS: productive cough, fever, soa TECHNIQUE: 2 views of the chest were acquired. COMPARISON: None. FINDINGS: Surgical changes and devices: None. Lungs and pleura: No pleural effusions or pneumothorax. Lungs are clear. There may be mild pulmonary hyperexpansion. Mediastinum: Mediastinal contours are normal. Heart size is normal. Bones and chest wall: No suspicious bony abnormalities. Age-appropriate degenerative changes of the thoracic spine are present. Soft tissues appear unremarkable. IMPRESSION: Negative chest. No acute cardiopulmonary process is evident. Dictated by: Serg Avila M.D. on 08/06/2018 at 13:23 Approved by: Serg Avila M.D. on 08/06/2018 at 13:24
--- NOTE | 2018-08-06 15:22 | PC.NURSE ---
Just used own inhaler. Stefan have provider listen prior to calling for neb treatment
--- NOTE | 2018-08-06 15:34 | ED.FEVER ---
HPI - Fever General Chief Complaint: Fever Stated Complaint: RUNNING FEVER, BROWN MUCUS, SHORT ON BREATH Time Seen by Provider: 08/06/18 15:29 Source: patient Mode of arrival: ambulatory History of Present Illness HPI Narrative: Patient is a 33-year-old female who presents with shortness of breath. She has a history of asthma. She feels like her chest is tight every time she walks with her daughter or walks at all she feels like she can't get enough air in. She says that she has had a fever she is afebrile here. She says that she has had productive cough. Her kids have also been sick. complaint: other (short of brath fever) Onset (ago): day(s) Related Data Home Medications Medication Instructions Recorded Confirmed albuterol sulfate [ProAir HFA] 1 puff INHALATION PRN PRN 08/06/18 08/06/18 azithromycin 250 mg PO DAILY 08/06/18 08/06/18 Previous Rx's Medication Instructions Recorded prednisone 50 mg PO DAILY #5 tab 08/06/18 Allergies Allergy/AdvReac Type Severity Reaction Status Date / Time No Known Drug Allergies Allergy Verified 06/16/18 11:32 Review of Systems Review of Systems All systems reviewed & are unremarkable except as noted in HPI and below Constitutional Denies chills, Reports fatigue, Reports fever(s), Denies lethargy and Denies weakness Respiratory Reports as per HPI, Reports chest congestion, Reports cough and Reports wheezing Gastrointestinal Gastrointestinal: Denies abdominal pain, Denies change in bowel habits, Denies diarrhea, Denies nausea and Denies vomiting Genitourinary Denies hematuria, Denies flank pain, Denies urinary incontinence and Denies urinary urgency Musculoskeletal Denies back pain, Denies muscle weakness, Denies numbness and Denies tingling Integumentary/Breasts Denies pruritus, Denies erythema, Denies rash and Denies wounds Neurologic Denies numbness, Denies tingling and Denies weakness Endocrine Reports fatigue Allergic/Immunologic Reports wheezing [facility] Social History household members: significant other and children Smoking Status: Never smoker Exam Initial Vital Signs Initial Vital Signs: Vital Signs Temperature 98.1 F 08/06/18 13:30 Pulse Rate 113 H 11/14/18 13:30 Respiratory Rate 22 08/06/18 13:30 Blood Pressure 130/81 08/06/18 13:30 Pulse Oximetry 98 08/06/18 13:30 GENERAL: Well-appearing, well-nourished and in no acute distress. HEENT: Head atraumatic,EOMI, pupils reactive, CARDIOVASCULAR: Regular rate and rhythm without murmurs, rubs or gallops. RESPIRATORY: Breath sounds equal bilaterally, no wheezes rales or rhonchi. ABDOMEN: Soft, nontender. Normoactive bowel sounds all 4 quadrants. No guarding or rebound. EXTREMITIES: Normal range of motion, no clubbing or edema. Neurovascularly intact NEUROLOGICAL: Alert and oriented x4.Normal gait and speech. SKIN: Warm, dry, no laceration, no petechiae, no rashes or lesions. Course Orders Ordered: ED Orders 08/06/18 13:32 XR chest 2V Stat Discontinued Medications Albuterol (Ventolin) 2.5 mg INH NOW ONE Stop: 08/06/18 15:34 Last Admin: 08/06/18 15:40 Dose: 2.5 mg Albuterol (Ventolin) 2.5 mg INH NOW PRN PRN Reason: Wheezing Last Admin: 08/06/18 15:49 Dose: 2.5 mg Vital Signs - 8 hr 08/06/18 13:30 08/06/18 15:41 08/06/18 16:45 Temperature 98.1 F Pulse Rate 113 H 96 H 102 H Respiratory Rate 22 16 20 Blood Pressure 130/81 106/60 Pulse Oximetry 98 96 99 MDM - Fever Imaging Data Chest x-ray: Radiologist's impression: [address] [address] XRay Report Signed Patient: Sarahi De La Fuente [facility]#: [id number] : 1985Acct:[id number] Age/Sex: 33 / FDate of Service: 08/06/18 Loc: ED Accession Number: [id number] Procedure: XR chest 2V Ordering Provider: Modesta Morales D.O. PROCEDURE: XR CHEST 2V INDICATIONS: productive cough, fever, soa TECHNIQUE: 2 views of the chest were acquired. COMPARISON: None. FINDINGS: Surgical changes and devices: None. Lungs and pleura: No pleural effusions or pneumothorax. Lungs are clear. There may be mild pulmonary hyperexpansion. Mediastinum: Mediastinal contours are normal. Heart size is normal. Bones and chest wall: No suspicious bony abnormalities. Age-appropriate degenerative changes of the thoracic spine are present. Soft tissues appear unremarkable. IMPRESSION: Negative chest. No acute cardiopulmonary process is evident. Dictated by: Serg Avila M.D. on 08/06/2018 at 13:23 MDM Narrative Medical decision making narrative: Breathing is much improved after albuterol. She is actually sleeping she has got some wheezing now. She has never hypoxic. She overall feels much better. X-rays negative no antibiotics this time. Discharge Plan Departure Patient Disposition: Home Clinical Impression: Asthma exacerbation Discharge Date/Time: 08/06/18 16:46 Interventions: ED Discharge Assessment Last Done: 08/06/18 16:45 Instructions: DI for Reactive Airway Disease-Adult Activity Restrictions/Additional Instructions: *You have been diagnosed with asthma *What to do: Rest, no antibiotics needed at this time a chest x-ray is negative *Continue to take medications as directed Prednisone 50 mg once a day for 5 days *Follow up with your primary care provider in 2-3 days *Return to ER if you should have increasing shortness of breath, chest tightness or chest pain or any new, worsening or concerning symptoms Prescriptions: New prednisone 50 mg tablet 50 mg PO DAILY Qty: 5 RF: 0 No Action azithromycin 250 mg tablet 250 mg PO DAILY RF: 0 albuterol sulfate [ProAir HFA] 90 mcg/actuation HFA aerosol inhaler 1 puff Inhalation PRN PRN (Reason: Shortness Of Breath) RF: 0
[2018-08-06] MEDS: ALBUTEROL 2.5 MG/3 ML NEB (ADULT) INH ×2 (15:40→15:49)
--- NOTE | 2018-08-06 15:40 | ED_ITS ---
HPI - Fever General Chief Complaint: Fever Stated Complaint: RUNNING FEVER, BROWN MUCUS, SHORT ON BREATH Time Seen by Provider: 08/06/18 15:29 Source: patient Mode of arrival: ambulatory History of Present Illness HPI Narrative: Patient is a 33-year-old female who presents with shortness of breath. She has a history of asthma. She feels like her chest is tight every time she walks with her daughter or walks at all she feels like she can't get enough air in. She says that she has had a fever she is afebrile here. She says that she has had productive cough. Her kids have also been sick. complaint: other (short of brath fever) Onset (ago): day(s) Related Data Home Medications Medication Instructions Recorded Confirmed albuterol sulfate [ProAir HFA] 1 puff INHALATION PRN PRN 08/06/18 08/06/18 azithromycin 250 mg PO DAILY 08/06/18 08/06/18 Previous Rx's Medication Instructions Recorded prednisone 50 mg PO DAILY #5 tab 08/06/18 Allergies Allergy/AdvReac Type Severity Reaction Status Date / Time No Known Drug Allergies Allergy Verified 06/16/18 11:32 Review of Systems Review of Systems All systems reviewed & are unremarkable except as noted in HPI and below Constitutional Denies chills, Reports fatigue, Reports fever(s), Denies lethargy and Denies weakness Respiratory Reports as per HPI, Reports chest congestion, Reports cough and Reports wheezing Gastrointestinal Gastrointestinal: Denies abdominal pain, Denies change in bowel habits, Denies diarrhea, Denies nausea and Denies vomiting Genitourinary Denies hematuria, Denies flank pain, Denies urinary incontinence and Denies urinary urgency Musculoskeletal Denies back pain, Denies muscle weakness, Denies numbness and Denies tingling Integumentary/Breasts Denies pruritus, Denies erythema, Denies rash and Denies wounds Neurologic Denies numbness, Denies tingling and Denies weakness Endocrine Reports fatigue Allergic/Immunologic Reports wheezing [facility] Social History household members: significant other and children Smoking Status: Never smoker Exam Initial Vital Signs Initial Vital Signs: Vital Signs Temperature 98.1 F 08/06/18 13:30 Pulse Rate 113 H 11/14/18 13:30 Respiratory Rate 22 08/06/18 13:30 Blood Pressure 130/81 08/06/18 13:30 Pulse Oximetry 98 08/06/18 13:30 GENERAL: Well-appearing, well-nourished and in no acute distress. HEENT: Head atraumatic,EOMI, pupils reactive, CARDIOVASCULAR: Regular rate and rhythm without murmurs, rubs or gallops. RESPIRATORY: Breath sounds equal bilaterally, no wheezes rales or rhonchi. ABDOMEN: Soft, nontender. Normoactive bowel sounds all 4 quadrants. No guarding or rebound. EXTREMITIES: Normal range of motion, no clubbing or edema. Neurovascularly intact NEUROLOGICAL: Alert and oriented x4.Normal gait and speech. SKIN: Warm, dry, no laceration, no petechiae, no rashes or lesions. Course Orders Ordered: ED Orders 08/06/18 13:32 XR chest 2V Stat Discontinued Medications Albuterol (Ventolin) 2.5 mg INH NOW ONE Stop: 08/06/18 15:34 Last Admin: 08/06/18 15:40 Dose: 2.5 mg Albuterol (Ventolin) 2.5 mg INH NOW PRN PRN Reason: Wheezing Last Admin: 08/06/18 15:49 Dose: 2.5 mg Vital Signs - 8 hr 08/06/18 13:30 08/06/18 15:41 08/06/18 16:45 Temperature 98.1 F Pulse Rate 113 H 96 H 102 H Respiratory Rate 22 16 20 Blood Pressure 130/81 106/60 Pulse Oximetry 98 96 99 MDM - Fever Imaging Data Chest x-ray: Radiologist's impression: [address] [address] XRay Report Signed Patient: Sarahi De La Fuente [facility]#: [id number] : 1985Acct:[id number] Age/Sex: 33 / FDate of Service: 08/06/18 Loc: ED Accession Number: [id number] Procedure: XR chest 2V Ordering Provider: Modesta Morales D.O. PROCEDURE: XR CHEST 2V INDICATIONS: productive cough, fever, soa TECHNIQUE: 2 views of the chest were acquired. COMPARISON: None. FINDINGS: Surgical changes and devices: None. Lungs and pleura: No pleural effusions or pneumothorax. Lungs are clear. There may be mild pulmonary hyperexpansion. Mediastinum: Mediastinal contours are normal. Heart size is normal. Bones and chest wall: No suspicious bony abnormalities. Age-appropriate degenerative changes of the thoracic spine are present. Soft tissues appear unremarkable. IMPRESSION: Negative chest. No acute cardiopulmonary process is evident. Dictated by: Serg Avila M.D. on 08/06/2018 at 13:23 MDM Narrative Medical decision making narrative: Breathing is much improved after albuterol. She is actually sleeping she has got some wheezing now. She has never hypoxic. She overall feels much better. X-rays negative no antibiotics this time. Discharge Plan Departure Patient Disposition: Home Clinical Impression: Asthma exacerbation Discharge Date/Time: 08/06/18 16:46 Interventions: ED Discharge Assessment Last Done: 08/06/18 16:45 Instructions: DI for Reactive Airway Disease-Adult Activity Restrictions/Additional Instructions: *You have been diagnosed with asthma *What to do: Rest, no antibiotics needed at this time a chest x-ray is negative *Continue to take medications as directed Prednisone 50 mg once a day for 5 days *Follow up with your primary care provider in 2-3 days *Return to ER if you should have increasing shortness of breath, chest tightness or chest pain or any new, worsening or concerning symptoms Prescriptions: New prednisone 50 mg tablet 50 mg PO DAILY Qty: 5 RF: 0 No Action azithromycin 250 mg tablet 250 mg PO DAILY RF: 0 albuterol sulfate [ProAir HFA] 90 mcg/actuation HFA aerosol inhaler 1 puff Inhalation PRN PRN (Reason: Shortness Of Breath) RF: 0
[2018-08-06 15:41] VITALS: PULSE 96; RESP 16; O2SAT 96
--- NOTE | 2018-08-06 16:35 | PC.NURSE ---
Lung soungs continued wheezes t/o
[2018-08-06 16:45] VITALS: BP 106/60; PULSE 102; RESP 20; O2SAT 99
== END 2018-08-06 16:46 | disposition home or self-care (01) ==
PROVIDERS: Emergency Provider Emergency Medicine; PCP Family Medicine
DX: J45.901 Unspecified asthma with (acute) exacerbation (principal)
CPT/HCPCS: 71046; 94640; 99282; 99283; J7613

== ENCOUNTER 2018-09-15 10:49 | Emergency (ER) | payer OTHER, MEDICAID, SELFPAY ==
[2018-06-16 17:41] VITALS: BMI 24.0
[2018-09-15 10:50] VITALS: BP 93/62; PULSE 105; RESP 18; TEMP 37; O2SAT 98; BMI 22.3
--- NOTE | 2018-09-15 11:07 | ED.GENADULT ---
HPI - General Adult General Chief complaint: Nausea/Vomiting/Diarrhea Stated complaint: 'think i have food poisoning' Time Seen by Provider: 09/15/18 11:07 Source: patient Mode of arrival: ambulatory Limitations: no limitations History of Present Illness HPI narrative: 33-year-old otherwise healthy female here for evaluation of nausea and diarrhea. She states she has not vomited but feels like she needs to vomit. States that it started last evening. He has got abdominal cramping. No fevers. No urinary symptoms. Related Data Previous Rx's Medication Instructions Recorded ondansetron 4 mg PO Q6-8H PRN #10 tab 09/15/18 Allergies Allergy/AdvReac Type Severity Reaction Status Date / Time No Known Drug Allergies Allergy Verified 09/15/18 11:08 Review of Systems Constitutional Denies fever(s) Cardiovascular Denies chest pain and Denies dyspnea Respiratory Denies dyspnea Gastrointestinal Gastrointestinal: Reports diarrhea, Reports nausea and Denies vomiting Genitourinary Denies dysuria Musculoskeletal Reports myalgias and Denies arthralgias Integumentary/Breasts Denies rash Neurologic Denies behavioral changes Psychiatric Denies behavioral changes [facility] Medical History Healthy adult (Acute) Surgical History No pertinent past surgical history (Acute) Status post delivery (11/06/11) Social History household members: significant other and children Smoking Status: Never smoker Exam Initial Vital Signs Initial Vital Signs: Vital Signs Temperature 98.6 F 09/15/18 10:50 Pulse Rate 105 H 09/15/18 10:50 Respiratory Rate 18 09/15/18 10:50 Blood Pressure 93/62 09/15/18 10:50 Pulse Oximetry 98 09/15/18 10:50 Const General: cooperative, comfortable, well developed, well groomed, acute distress and No in distress Orientation: alert, awake and oriented x3 HENMT Head: normal to inspection and normocephalic Resp Effort & Inspection: normal respiratory effort Auscultation: clear to auscultation bilaterally Cardio Rate: tachycardic Rhythm: regular rhythm Pulses: radial pulses present GI Inspection: non-distended Palpation: soft and No firm Back/Spine/Pelvis Back: No CVA tenderness Skin General: no rashes or lesions noted Lesions: no lesions Rashes: no rashes Neuro General: alert, awake and oriented x3 Extrem General: normal to inspection and capillary refill normal Psych Appearance: grossly normal and well kempt Course Orders Ordered: Discontinued Medications Sodium Chloride (Normal Saline 0.9%) 1,000 mls @ 1,000 mls/hr IV BOLUS ONE Stop: 09/15/18 12:07 Last Infusion: 09/15/18 12:10 Dose: 0 mls/hr Admin: 09/15/18 11:22 Dose: 1,000 mls/hr Ondansetron HCl (Zofran) 4 mg IV NOW ONE Stop: 09/15/18 11:22 Last Admin: 09/15/18 11:22 Dose: 4 mg Vital Signs - 8 hr 09/15/18 10:50 09/15/18 11:23 Temperature 98.6 F Pulse Rate 105 H 105 H Respiratory Rate 18 14 Blood Pressure 93/62 Blood Pressure [Left Arm] 104/79 Pulse Oximetry 98 98 Medical Decision Making Lab Data Lab results reviewed: Yes I reviewed the patient's lab results. Point of Care Testing Test Results Negative Urine Dip Bedside Urine Glucose Negative Bedside Urine Bilirubin - Negative Bedside Urine Ketone - Negative Urine Specific [place] 1.015 Bedside Urine Occult Blood - Negative Bedside Urine pH 6.0 Bedside Urine Protein - Negative Bedside Urine Urobilinogen - Negative Bedside Urine Nitrite - Negative Bedside Urine Leukocytes - Negative Esterase Point of care testing: Point of Care Testing Test Results Negative Urine Dip Bedside Urine Glucose Negative Bedside Urine Bilirubin - Negative Bedside Urine Ketone - Negative Urine Specific [place] 1.015 Bedside Urine Occult Blood - Negative Bedside Urine pH 6.0 Bedside Urine Protein - Negative Bedside Urine Urobilinogen - Negative Bedside Urine Nitrite - Negative Bedside Urine Leukocytes - Negative Esterase MDM Narrative Medical decision making narrative: Urine test were negative. Patient was able to tolerate oral intake here in the emergency department. Heart rate improved fluids. No indication for antibiotics. Has a benign abdominal exam. Will hold on radiologic studies for now. Was sent home with Zofran. Patient was given return precautions. She expressed understanding and agreement with plan. Discharge Plan Departure Patient Disposition: Home Clinical Impression: Nausea, Diarrhea Instructions: Diarrhea, DI for Nausea -- Adult Activity Restrictions/Additional Instructions: Recommend you drink small amounts of fluid over longer periods of time. I also recommend that you eat a bland diet for the next 24-40 hours. Return to the emergency department for any new or worsening symptoms Prescriptions: New ondansetron 4 mg tablet,disintegrating 4 mg PO Q6-8H PRN (Reason: nausea and vomiting) Qty: 10 RF: 0
[2018-09-15] MEDS: ONDANSETRON 4 MG/2 ML INJ IV (11:22)
[2018-09-15] MEDS: SODIUM CHLORIDE 0.9% 1,000 ML 1000 ML IV (11:22)
[2018-09-15 11:23] VITALS: BP 104/79; PULSE 105; RESP 14; O2SAT 98
[2018-09-15 12:52] VITALS: BP 100/52; PULSE 94; RESP 14; TEMP 37.2; O2SAT 99
== END 2018-09-15 13:02 | disposition home or self-care (01) ==
PROVIDERS: Emergency Provider Emergency Medicine; PCP Family Medicine
DX: R11.10 Vomiting, unspecified (principal); R19.7 Diarrhea, unspecified
CPT/HCPCS: 36591; 81003; 81025; 96361; 96374; 99283; 99284; J2405

== ENCOUNTER → 2018-12-09 09:26 | Outpatient (REF) | payer OTHER, MEDICAID, SELFPAY ==
[2018-06-16 17:41] VITALS: BMI 24.0
== END ==
LOC: LAB 09:26
PROVIDERS: PCP Family Medicine; Visit Provider Nurse Practitioner Family
DX: R05 Cough (principal); R50.9 Fever, unspecified; Z20.828 Contact with and (suspected) exposure to other viral communicable diseases
CPT/HCPCS: 87400

== ENCOUNTER → 2020-12-26 09:37 | Outpatient (CLI) | payer OTHER, MEDICAID, SELFPAY ==
[2018-06-16 17:41] VITALS: BMI 24.0
[2020-12-26 12:05] LABS: COVID19 -Nasal RAPID Negative (Negative)
== END ==
PROVIDERS: PCP Family Medicine; Visit Provider Family Medicine Sleep Medicine
DX: Z20.822 Contact with and (suspected) exposure to COVID-19 (principal); G47.33 Obstructive sleep apnea (adult) (pediatric)
CPT/HCPCS: 87635; 95810

== ENCOUNTER → 2021-02-22 10:07 | Outpatient (CLI) | payer OTHER, MEDICAID, SELFPAY ==
[2018-06-16 17:41] VITALS: BMI 24.0
[2021-02-22 14:11] LABS: COVID19 -Nasal RAPID Negative (Negative)
== END ==
PROVIDERS: PCP Family Medicine; Visit Provider Family Medicine Sleep Medicine
DX: Z20.822 Contact with and (suspected) exposure to COVID-19 (principal); G47.33 Obstructive sleep apnea (adult) (pediatric); G47.01 Insomnia due to medical condition; G47.19 Other hypersomnia; R53.83 Other fatigue; G47.9 Sleep disorder, unspecified; Z87.898 Personal history of other specified conditions
CPT/HCPCS: 87635; 95811

== ENCOUNTER 2021-05-29 09:12 | Emergency (ER) | payer OTHER, MEDICAID, SELFPAY ==
[2018-06-16 17:41] VITALS: BMI 24.0
[2021-05-29 09:30] VITALS: BP 130/79; PULSE 69; RESP 18; TEMP 36.9; O2SAT 97; BMI 25.7
--- NOTE | 2021-05-29 09:31 | ED_ITS ---
HPI - Skin/Abscess/Foreign Bdy General Chief complaint: Skin/Abscess/Foreign Body Stated complaint: infected abscess in Rt nostril/side of face pain Time Seen by Provider: 05/29/21 09:22 History of Present Illness HPI narrative: Patient is a 35-year-old female who presents with right naris abscess ongoing for 2 days. It is just inside her rate they are she has swelling and drainage. She has been using hot compresses it finally started draining but she has intense pain. She feels nauseous at times. No fever or chills. Related Data Home Medications Medication Instructions Recorded Confirmed albuterol sulfate INHALATION 11/12/19 03/05/21 beclomethasone dipropionate [Qvar] INHALATION 11/12/19 03/05/21 citalopram 20 mg tablet 30 mg PO DAILY tab 11/23/20 03/05/21 Previous Rx's Medication Instructions Recorded triamcinolone acetonide 0.1 % 1 applic TOP TID #80 gram 05/12/20 topical cream sulfamethoxazole 800 1 tab PO BID 7 Days #14 tab 05/29/21 mg-trimethoprim 160 mg tablet (Bactrim DS) Allergies Allergy/AdvReac Type Severity Reaction Status Date / Time No Known Drug Allergies Allergy Verified 11/23/20 08:57 Review of Systems Review of Systems Narrative: GENERAL: Denies chills,fever HEENT: Denies throat pain RESPIRATORY: Denies dyspnea, cough, wheezing CARDIOVASCULAR: Denies chest pain, palpitations GASTROINTESTINAL: Denies nausea, vomiting MUSCULOSKELETAL: Denies extremity pain, injury SKIN: Abscess right nare NEUROLOGIC: Denies weakness, dizziness, headache, numbness 8 point review of systems is negative except for those stated above and HPI Patient History Medical History (Updated 05/29/21 @ 09:34 by Modesta Morales DO) Acute appendicitis Asthma exacerbation Excessive daytime sleepiness Fatigue due to sleep pattern disturbance Healthy adult History of snoring Insomnia due to medical condition Nexplanon insertion Nexplanon removal Obstructive sleep apnea, adult (~12/2020) Skin rash Surgical History No pertinent past surgical history Status post delivery (11/06/11) Family History (Updated 01/03/21 @ 16:48 by RIDGE Talbot) Father Loud snoring Sleep apnea Son Loud snoring Sleep apnea Social History details: her 9 year old son is on CPAP household members: significant other and children lives independently: Yes caregiver/support person: No housing: apartment education level: college (at [employer]) Smoking Status: Never smoker Smoking Status: Never smoker alcohol intake frequency: 0-2 drinks per day Substance Use Type: does not use Exam Initial Vital Signs Initial Vital Signs: Vital Signs Temperature 98.4 F 05/29/21 09:30 Pulse Rate 69 05/29/21 09:30 Respiratory Rate 18 05/29/21 09:30 Blood Pressure 130/79 05/29/21 09:30 Pulse Oximetry 97 05/29/21 09:30 GENERAL: Well-appearing, well-nourished and in no acute distress. NOSE: Right Smith abscess internally anteriorly obviously draining. No surrounding erythema or induration. But it is tender to touch. CARDIOVASCULAR: peripheral pulses in tact, cap refill <2 sec RESPIRATORY: No respiratory distress, speaks in full sentences without difficulty EXTREMITIES: Normal range of motion, no clubbing or edema. Neurovascularly intact NEUROLOGICAL: Cranial nerves II through XII grossly intact. Normal gait and speech. SKIN: Warm, dry, no petechiae, no rashes or lesions. MDM - Skin/Abscess/Foreign Bdy MDM Narrative Medical decision making narrative: Abscess is actually draining quite a bit. There is no surrounding induration or erythema. No sign of facial cellulitis. I was able to squeeze quite a bit of pus out of it. Culture is pending. She is placed on back. Discharge Plan Departure Patient Disposition: Home Clinical Impression: Abscess of skin Qualifiers: Site of cutaneous abscess: face Qualified Code(s): L02.01 - Cutaneous abscess of face Activity Restrictions/Additional Instructions: *You have been diagnosed with skin abscess *What to do: Continue with warm compresses. Continue trying to squeeze in drain abscess as well. *Continue to take medications as directed Motrin 800 mg every 8 hours if needed for pain Bactrim 1 tablet twice a day for 7 days-start today *Follow up with your primary care provider in 2-3 days *Return to ER if you should have in facial swelling, fever, redness, pain, severe headache or any new, worsening or concerning symptoms Prescriptions: New sulfamethoxazole-trimethoprim [Bactrim DS] 800-160 mg tablet 1 tab PO BID 7 Days Qty: 14 RF: 0 No Action triamcinolone acetonide 0.1 % cream 1 applic TOP TID Qty: 80 RF: 1 beclomethasone dipropionate INHALATION RF: 0 albuterol sulfate inhalation RF: 0 citalopram 20 mg tablet 30 mg PO DAILY RF: 0 Referrals: Kellie Boles MD [Primary Care Provider] -
== END 2021-05-29 09:40 | disposition home or self-care (01) ==
PROVIDERS: Emergency Provider Emergency Medicine; PCP Family Medicine
DX: L02.01 Cutaneous abscess of face (principal); R11.0 Nausea
CPT/HCPCS: 87070; 87077; 87147; 87186; 87205; 99281; 99282

== ENCOUNTER → 2021-07-01 10:51 | Outpatient (CLI) | payer OTHER, MEDICAID, SELFPAY ==
[2018-06-16 17:41] VITALS: BMI 24.0
== END ==
PROVIDERS: PCP Family Medicine; Visit Provider Nurse Practitioner
DX: L02.91 Cutaneous abscess, unspecified (principal)
CPT/HCPCS: 87070; 87077; 87147; 87186; 87205

== ENCOUNTER 2021-09-18 10:24 | Emergency (ER) | payer OTHER, MEDICAID, SELFPAY ==
[2021-08-28 14:21] VITALS: BMI 24.0
[2021-09-18 10:30] VITALS: BP 129/68; PULSE 80; RESP 18; TEMP 36.7; O2SAT 99; BMI 28.3
--- NOTE | 2021-09-18 10:53 | ED.SKABFB ---
HPI - Skin/Abscess/Foreign Bdy General Chief complaint: Skin/Abscess/Foreign Body Stated complaint: Painful cyst in left armpit Time Seen by Provider: 09/18/21 10:53 Source: patient Mode of arrival: Ambulatory Limitations: no limitations History of Present Illness HPI narrative: Patient is a 36-year-old female with history of abscesses presenting with left is axilla swelling. She says been there for about 4 days. No fever. She says last night the swelling and pain got to be significantly worse. She has some mild erythema there. No numbness or tingling. Related Data Home Medications Medication Instructions Recorded Confirmed albuterol sulfate INHALATION 11/12/19 07/01/21 beclomethasone dipropionate [Qvar] INHALATION 11/12/19 07/01/21 citalopram 20 mg tablet 30 mg PO DAILY tab 11/23/20 07/01/21 Previous Rx's Medication Instructions Recorded triamcinolone acetonide 0.1 % 1 applic TOP TID #80 gram 05/12/20 topical cream mupirocin 2 % topical ointment 1 applic TOPICAL TID #15 g 07/01/21 sulfamethoxazole 800 1 tab PO BID 7 Days #14 tab 09/18/21 mg-trimethoprim 160 mg tablet (Bactrim DS) Allergies Allergy/AdvReac Type Severity Reaction Status Date / Time No Known Drug Allergies Allergy Verified 07/01/21 10:47 Review of Systems Review of Systems Narrative: GENERAL: Denies chills,fever HEENT: Denies throat pain RESPIRATORY: Denies dyspnea, cough, wheezing CARDIOVASCULAR: Denies chest pain, palpitations GASTROINTESTINAL: Denies nausea, vomiting MUSCULOSKELETAL: Denies extremity pain, injury SKIN: See HPI NEUROLOGIC: Denies weakness, dizziness, headache, numbness 8 point review of systems is negative except for those stated above and HPI Patient History Medical History Acute appendicitis Asthma exacerbation Excessive daytime sleepiness Fatigue due to sleep pattern disturbance Healthy adult History of snoring Insomnia due to medical condition Nexplanon insertion Nexplanon removal Obstructive sleep apnea, adult (~12/2020) Skin rash Surgical History No pertinent past surgical history Status post delivery (11/06/11) Family History Father Loud snoring Sleep apnea Son Loud snoring Sleep apnea Social History details: her 9 year old son is on CPAP household members: significant other and children lives independently: Yes caregiver/support person: No housing: apartment education level: college Smoking Status: Never smoker Smoking Status: Never smoker alcohol intake frequency: 0-2 drinks per day Substance Use Type: does not use Exam Initial Vital Signs Initial Vital Signs: Vital Signs Temperature 98.1 F 09/18/21 10:30 Pulse Rate 80 09/18/21 10:30 Respiratory Rate 18 09/18/21 10:30 Blood Pressure 129/68 09/18/21 10:30 Pulse Oximetry 99 09/18/21 10:30 GENERAL: Well-appearing, well-nourished and in no acute distress. CARDIOVASCULAR: peripheral pulses in tact, cap refill <2 sec RESPIRATORY: No respiratory distress, speaks in full sentences without difficulty EXTREMITIES: Normal range of motion, no clubbing or edema. Neurovascularly intact NEUROLOGICAL: Cranial nerves II through XII grossly intact. Normal gait and speech. SKIN: Left axilla 3 cm x 2 cm fluctuation With mild erythema no drainage Procedures Abscess I/D I&D #1: Site: upper extremity (Axial) Side (if applicable): left Local Anesthetic: lidocaine 1% Amount of anesthesia used (mL): 2 Technique: incised with #11 blade Amount of fluid expressed (mL): 0.5 Packing used?: none Complications: bleeding (Requiring 1 suture) Laceration Repair Laceration 1: Size (cm): 2 Description: linear Depth: simple, single layer Local Anesthetic: lidocaine 1% and with epi Skin layer closed with: nylon Size (cm): 4-0 Number of sutures: 1 Technique: simple, interrupted Course Orders Ordered: Discontinued Medications Ketorolac Tromethamine (Ketorolac 30 Mg/Ml Vial) 30 mg IM NOW ONE Stop: 09/18/21 10:58 Last Admin: 09/18/21 11:43 Dose: 30 mg Documented by: WESTON Lidocaine HCl (Lidocaine 1% (Pf)) 4 ml SUBCUT NOW ONE Stop: 09/18/21 10:58 Last Admin: 09/18/21 11:43 Dose: 4 ml Documented by: WESTON Lidocaine/Epinephrine (Lidocaine 1% W/Epi) 1 ml SUBCUT NOW ONE Stop: 09/18/21 12:47 Last Admin: 09/18/21 13:28 Dose: 1 ml Documented by: WESTON Vital Signs Vital signs: Vital Signs - 8 hr 09/18/21 10:30 Temperature 98.1 F Pulse Rate 80 Respiratory Rate 18 Blood Pressure 129/68 Pulse Oximetry 99 MDM - Skin/Abscess/Foreign Bdy MDM Narrative Medical decision making narrative: Patient does have an obvious fluctuant area is she does have looks like the start of some redness in abscess. It was I and D but very minimal drainage. Started her on antibiotics warm compresses. However this is possible lymph node versus cyst Patient was discharged however quickly returned with continued bleeding from site. There is small artery that bleeding. 1 suture was placed with lidocaine and epinephrine bleeding stopped completely. Possible cyst versus lymph node. Culture is pending Discharge Plan Departure Patient Disposition: Home Clinical Impression: Abscess Instructions: DI for Skin Abscess Activity Restrictions/Additional Instructions: *You have been diagnosed with left armpit abscess versus lymph node *What to do: At this time recommend warm compresses we will put you on antibiotics however not a lot of drainage. have your sutures removed in about 3-5 days. Either by walk-in clinic, your doctor or you may return to the emergency room. Difficult to tell what this is at this time. Please continue to monitor take antibiotics will definitely need re-evaluation. *Continue to take medications as directed Bactrim 1 tab twice a day for 7 days *Follow up with your primary care provider in 2-3 days or call [phone] *Return to ER if you should have increased redness, fever, numbness, tingling any new, worsening or concerning symptoms Prescriptions: New sulfamethoxazole-trimethoprim [Bactrim DS] 800-160 mg tablet 1 tab PO BID 7 Days Qty: 14 0RF No Action triamcinolone acetonide 0.1 % cream 1 applic TOP TID Qty: 80 1RF mupirocin 2 % ointment 1 applic topical TID Qty: 15 0RF beclomethasone dipropionate INHALATION 0RF albuterol sulfate inhalation 0RF citalopram 20 mg tablet 30 mg PO DAILY 0RF Referrals: Kellie Boles MD [Primary Care Provider] -
[2021-09-18] MEDS: LIDOCAINE 1% (PF) 4 ML SUBCUT (11:43)
[2021-09-18] MEDS: KETOROLAC 30 MG/ML VIAL IM (11:43)
[2021-09-18] MEDS: LIDOCAINE 1% W/EPI 1 ML SUBCUT (13:28)
== END 2021-09-18 13:29 | disposition home or self-care (01) ==
PROVIDERS: Emergency Provider Emergency Medicine; PCP Family Medicine
DX: L02.412 Cutaneous abscess of left axilla (principal)
CPT/HCPCS: 10060; 87070; 87077; 87147; 87186; 87205; 96372; 99283; J1885

== ENCOUNTER 2022-01-19 08:31 | Emergency (ER) | payer OTHER, MEDICAID, SELFPAY ==
[2021-12-26 16:09] VITALS: BMI 24.0
[2022-01-19 09:02] VITALS: BP 123/71; PULSE 94; RESP 16; TEMP 36.8; O2SAT 99; BMI 27.9
--- NOTE | 2022-01-19 09:52 | ED.SKABFB ---
HPI - Skin/Abscess/Foreign Bdy General Chief complaint: Skin/Abscess/Foreign Body Stated complaint: possiable spider bite lt side of back upper thigh Time Seen by Provider: 01/19/22 09:44 Source: patient Mode of arrival: Ambulatory Limitations: no limitations History of Present Illness HPI narrative: Patient here for left gluteal fold redness/drainage. Ongoing for 1 week. Started draining yesterday. Patient has history of cellulitis with Staph aureus cultures. Patient denies does not want test. Is allergic doxycycline. Related Data Home Medications Medication Instructions Recorded Confirmed albuterol sulfate INHALATION 11/12/19 11/20/21 beclomethasone dipropionate [Qvar] INHALATION 11/12/19 11/20/21 citalopram 20 mg tablet 30 mg PO DAILY tab 11/23/20 11/20/21 Previous Rx's Medication Instructions Recorded triamcinolone acetonide 0.1 % 1 applic TOP TID #80 gram 05/12/20 topical cream mupirocin 2 % topical ointment 1 applic TOPICAL TID #15 g 07/01/21 clindamycin HCl 300 mg capsule 300 mg PO Q8H #21 cap 01/19/22 hydrocodone 5 mg-acetaminophen 325 1 tab PO Q6H PRN #12 tab 01/19/22 mg tablet ondansetron 4 mg disintegrating 4 mg PO Q8H PRN #10 tab 01/19/22 tablet Allergies Allergy/AdvReac Type Severity Reaction Status Date / Time No Known Drug Allergies Allergy Verified 11/20/21 15:31 Review of Systems Review of Systems Narrative: GENERAL: Denies chills, fatigue, malaise, fever, sweats. HEENT: Denies sinus pain, ear pain, sore throat MUSCULOSKELETAL: denies muscle or bony pain SKIN: Denies rash, skin lesions, positive for induration/abscess/redness NEUROLOGIC: Denies weakness, numbness ROS Unobtainable: All systems reviewed & are unremarkable except as noted in HPI and below Patient History Medical History Acute appendicitis Asthma exacerbation Excessive daytime sleepiness Fatigue due to sleep pattern disturbance Healthy adult History of snoring Insomnia due to medical condition Nexplanon insertion Nexplanon removal Obstructive sleep apnea, adult (~12/2020) Skin rash Surgical History No pertinent past surgical history Status post delivery (11/06/11) Family History Father Loud snoring Sleep apnea Son Loud snoring Sleep apnea Social History details: her 9 year old son is on CPAP household members: significant other and children lives independently: Yes caregiver/support person: No housing: apartment education level: college Smoking Status: Never smoker Smoking Status: Never smoker alcohol intake frequency: 0-2 drinks per day Substance Use Type: does not use Exam Narrative Exam Narrative: GENERAL: in no distress, not toxic not dyspneic HEAD: Normocephalic. EXTREMITIES: No gross deformities. 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 There is a small central area that is draining serous fluid. Otherwise no palpable fluctuance for incision and drainage. There is mild surrounding erythema of this indurated area. No red streaking. It is tender to touch. At this time no indication for blood work or imaging. No incision or drainage indicated at this time. Appropriate for starting antibiotics NEURO: AOx4. SKIN: Warm and dry PSYCH: Not anxious, is cooperative Initial Vital Signs Initial Vital Signs: Vital Signs Temperature 98.3 F 01/19/22 09:02 Pulse Rate 94 H 01/19/22 09:02 Respiratory Rate 16 01/19/22 09:02 Blood Pressure 123/71 01/19/22 09:02 Pulse Oximetry 99 01/19/22 09:02 Course Course Course Narrative: No new issues during course of stay Orders Ordered: Discontinued Medications Clindamycin HCl (Clindamycin 150 Mg Capsule) 300 mg PO NOW ONE Stop: 01/19/22 09:53 Last Admin: 01/19/22 10:09 Dose: 300 mg Documented by: EUGENEOTENathan Reevaluation(s) Reevaluation #1: Patient agrees at this time no laboratory studies/blood work or imaging indicated. No incision and drainage indicated this time as it is already draining. No central fluctuance for incision. Return precautions reviewed with her. It may worsen and at that time may need incision drainage/imaging. She agrees. Time: 10:00 Vital Signs Vital signs: Vital Signs - 8 hr 01/19/22 09:02 Temperature 98.3 F Pulse Rate 94 H Respiratory Rate 16 Blood Pressure 123/71 Pulse Oximetry 99 MDM - Skin/Abscess/Foreign Bdy Differential Diagnosis Differential diagnosis: Likely abscess of skin or subcutaneous tissue MDM Narrative Medical decision making narrative: Appropriate for discharge home with antibiotics and pain medicine for pain control. Area is very tender to touch in appropriate for opiate short course prescription. No blood work or imaging indicated. Not toxic. Abscess not amenable for drainage at this time as it is already spontaneously draining and no other areas of fluctuance for incision and drainage. Return precautions reviewed with her. She desires discharge home. She does have a family doctor to follow up with. Discharge Plan Departure Patient Disposition: Home Clinical Impression: Abscess and cellulitis of gluteal region Instructions: DI for Cellulitis -- Adult, DI for Skin Abscess Activity Restrictions/Additional Instructions: See family doctor next week for re-evaluation of the cellulitis/abscess. Not requiring incision of this wound at this time as it is already draining. Prescription for pain control as well as antibiotics has been provided for you. Be sure to complete the antibiotics. Use the pain medication only as needed for pain. No driving or operating machine when taking this medication. Return if worse if any questions or concerns Prescriptions: New clindamycin HCl 300 mg capsule 300 mg PO Q8H Qty: 21 0RF hydrocodone-acetaminophen 5-325 mg tablet 1 tab PO Q6H PRN (Reason: pain) Qty: 12 0RF ondansetron 4 mg tablet,disintegrating 4 mg PO Q8H PRN (Reason: nausea and vomiting) Qty: 10 0RF No Action triamcinolone acetonide 0.1 % cream 1 applic TOP TID Qty: 80 1RF mupirocin 2 % ointment 1 applic topical TID Qty: 15 0RF beclomethasone dipropionate INHALATION 0RF albuterol sulfate inhalation 0RF citalopram 20 mg tablet 30 mg PO DAILY 0RF Referrals: Kellie Boles MD [Primary Care Provider] -
[2022-01-19] MEDS: CLINDAMYCIN 150 MG CAPSULE 300 MG PO (10:09)
--- NOTE | 2022-01-19 10:17 | PC.NURSE ---
the open site is less than 1 cm but swelling and firmness about 7cm x5cm.
[2022-01-19 10:22] VITALS: BP 133/84; PULSE 90; RESP 18; O2SAT 100
== END 2022-01-19 10:22 | disposition home or self-care (01) ==
PROVIDERS: Emergency Provider Emergency Medicine; PCP Family Medicine
DX: L03.317 Cellulitis of buttock (principal); L02.31 Cutaneous abscess of buttock
CPT/HCPCS: 87070; 87205; 99283

== ENCOUNTER 2023-01-31 00:24 | Emergency (ER) | payer OTHER, MEDICAID, SELFPAY ==
[2021-12-26 16:09] VITALS: BMI 24.0
[2023-01-31 00:35] VITALS: BP 117/69; PULSE 80; RESP 18; TEMP 36.6; O2SAT 98; BMI 27.4
--- NOTE | 2023-01-31 00:41 | DI.RAD.S_ITS ---
PROCEDURE: XR ELBOW LT MIN 3V INDICATIONS: fell on it at 1900,pain and swelling TECHNIQUE: 3 views of the elbow were acquired. COMPARISON: None. FINDINGS: Bones: No displaced fractures or dislocations. There is a curvilinear lucency in the radial head which may represent a nondisplaced fracture. No suspicious bony lesions. Soft tissues: There is a moderate elbow joint effusion. No suspicious soft tissue calcifications. IMPRESSION: 1. No displaced fracture or dislocation. Curvilinear lucency in the radial head is suspicious for a nondisplaced fracture. 2. Small to moderate joint effusion. Dictated by: North Stout M.D. on 01/31/2023 at 1:54 Approved by: North Stout M.D. on 01/31/2023 at 1:55
[2023-01-31 05:11] VITALS: BP 107/68; PULSE 72; RESP 16; O2SAT 99
--- NOTE | 2023-01-31 05:49 | ED_ITS ---
HPI - General Adult General Chief complaint: Extremity Injury, Upper Stated complaint: left arm pain fell off longboard today Time Seen by Provider: 01/31/23 05:48 Source: patient Mode of arrival: Ambulatory History of Present Illness HPI narrative: 37-year-old woman with history of mild intermittent asthma was out learning how to ride a long board last night fell off landing on her left elbow and presents with left elbow pain. She is not able to fully extend the elbow. She is otherwise neurovascularly intact. She complains of no other injuries. Related Data Home Medications Medication Instructions Recorded Confirmed albuterol sulfate inhalation 11/12/19 11/20/21 beclomethasone dipropionate [Qvar] inhalation 11/12/19 11/20/21 citalopram 20 mg tablet 30 mg PO DAILY 11/23/20 11/20/21 Previous Rx's Medication Instructions Recorded triamcinolone acetonide 0.1 % 1 applic topical TID #80 grams 05/12/20 topical cream mupirocin 2 % topical ointment 1 applic topical TID wound 07/01/21 infection #15 grams clindamycin HCl 300 mg capsule 300 mg PO Q8H #21 caps 01/19/22 hydrocodone 5 mg-acetaminophen 325 1 tab PO Q6H PRN pain #12 tabs 01/19/22 mg tablet ondansetron 4 mg disintegrating 4 mg PO Q8H PRN nausea and 01/19/22 tablet vomiting #10 tabs Allergies Allergy/AdvReac Type Severity Reaction Status Date / Time doxycycline Allergy Intermediate Gastrointestinal Verified 08/30/22 10:32 Upset Review of Systems Review of Systems Narrative: Pertinent positive and negative findings as per HPI Patient History Medical History Acute appendicitis Asthma exacerbation Excessive daytime sleepiness Fatigue due to sleep pattern disturbance Healthy adult History of snoring Insomnia due to medical condition Nexplanon insertion Nexplanon removal Obstructive sleep apnea, adult (~12/2020) Skin rash Surgical History No pertinent past surgical history Status post delivery (11/06/11) Family History Father Loud snoring Sleep apnea Son Loud snoring Sleep apnea Social History details: her 9 year old son is on CPAP household members: significant other and children lives independently: Yes caregiver/support person: No housing: apartment education level: college Smoking Status: Never smoker Smoking Status: Never smoker alcohol intake frequency: 0-2 drinks per day Substance Use Type: does not use Exam Initial Vital Signs Initial Vital Signs: Vital Signs Temperature 98 F 01/31/23 00:35 Pulse Rate 80 01/31/23 00:35 Respiratory Rate 18 01/31/23 00:35 Blood Pressure 117/69 01/31/23 00:35 Pulse Oximetry 98 01/31/23 00:35 Oxygen Delivery Method Room Air 01/31/23 00:35 General: Alert appropriate in no acute distress Respiratory: Able to speak in full sentences, no obvious respiratory distress Skin: No obvious rashes, warm and dry Neurologic: Grossly intact no obvious asymmetries or abnormalities Psych: appropriate insight and affect, cooperative Extremity: She has tenderness over the radial head with mild effusion, no abrasion and no obvious hematoma. 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 No shoulder abnormality Procedures Orthopedic Splinting/Casting Left elbow: Side: left Upper Extremity Injury Location: elbow Upper Extremity Immobilizer: sling/shoulder immobilizer and posterior splint Post splinting neuro exam: intact Post splinting vascular exam: intact Placed by: Nursing Course Orders Ordered: ED Orders 01/31/23 00:41 XR elbow LT min 3V Stat Discontinued Medications Acetaminophen (Acetaminophen 325 Mg Tablet) 325 mg PO NOW ONE Stop: 01/31/23 05:58 Last Admin: 01/31/23 06:15 Dose: 325 mg Documented By: REENA Hydrocodone Bitart/Acetaminophen (Hydrocodone/Acet 5/325 Prepack) 1 bottle MISC SEEINSTR ONE Stop: 01/31/23 06:39 Last Admin: 01/31/23 06:46 Dose: 1 bottle Documented By: REENA Ibuprofen (Ibuprofen 400 Mg Tablet) 400 mg PO NOW ONE Stop: 01/31/23 05:58 Last Admin: 01/31/23 06:15 Dose: 400 mg Documented By: REENA Vital Signs Vital signs: Vital Signs - 8 hr 01/31/23 05:11 01/31/23 06:53 Pulse Rate 72 68 Respiratory Rate 16 18 Blood Pressure 107/68 111/71 Pulse Oximetry 99 98 Oxygen Delivery Method Room Air Room Air Medical Decision Making MDM Narrative Medical decision making narrative: CC: Elbow pain after fall. This is an acute problem uncertain prognosis Data collected from: patient, Differential considered: Fracture, contusion Exam documented above, pertinent findings include: Inability to completely straighten the elbow with mild elbow effusion. Imaging studies independently reviewed:Curvilinear lucency in the radial head is suspicious for a nondisplaced fracture. Treatments: Splinting, sling, ice, ibuprofen and Tylenol Discussion: Findings reviewed with patient. Explained the sometimes difficult nature diagnosing subtle elbow fractures. The fact that she has swelling in his unable to completely extend the elbow along with the curvilinear your lucency noted on the x-ray strongly suggestive of a nondisplaced fracture. She is placed in a posterior splint given a sling and instructions to follow-up with orthopedic surgery for finished treatment and diagnosis of her injury. Questions are answered and she is safe for discharge home Discharge Plan Departure Patient Disposition: Home Clinical Impression: Elbow fracture, left Qualifiers: Encounter type: initial encounter Fracture type: closed Qualified Code(s): S42.402A - Unspecified fracture of lower end of left humerus, initial encounter for closed fracture Instructions: DI for Elbow Fracture Activity Restrictions/Additional Instructions: Thank you for coming in today I am concerned that you do have a small fracture of your elbow. Sometimes it is difficult to tell until the fracture starts to heal a bit. I have placed you in a splint and a sling as if it were broken. You do need to follow-up with [facility]. Please call them at [phone]. Please let them know that you are in the emergency department, fell on your elbow and likely have an elbow fracture. You will need an appointment for evaluation and definitive treatment of your presumed elbow fracture. Using 400 mg of ibuprofen (2 [id number] pills) and 1 Tylenol every 6 hours can be very helpful in controlling pain. Ice can help with swelling. The splint and the sling will help with immobilization which also helps with pain control. If you find that you are getting worse or develop any new symptoms, please feel free to return to the emergency department for further evaluation. Prescriptions: No Action triamcinolone acetonide 0.1 % cream 1 applic TOP TID Qty: 80 1RF mupirocin 2 % ointment 1 applic topical TID Qty: 15 0RF beclomethasone dipropionate INHALATION albuterol sulfate inhalation clindamycin HCl 300 mg capsule 300 mg PO Q8H Qty: 21 0RF hydrocodone-acetaminophen 5-325 mg tablet 1 tab PO Q6H PRN (Reason: pain) Qty: 12 0RF ondansetron 4 mg tablet,disintegrating 4 mg PO Q8H PRN (Reason: nausea and vomiting) Qty: 10 0RF citalopram 20 mg tablet 30 mg PO DAILY Referrals: Kellie Boles MD [Primary Care Provider] - Stand Alone Forms: Patient Portal/API
[2023-01-31] MEDS: IBUPROFEN 400 MG TABLET PO (06:15)
[2023-01-31] MEDS: ACETAMINOPHEN 325 MG TABLET PO (06:15)
[2023-01-31] MEDS: HYDROCODONE/ACET 5/325 PREPACK 1 BOTTLE MISC (06:46)
[2023-01-31 06:53] VITALS: BP 111/71; PULSE 68; RESP 18; O2SAT 98
== END 2023-01-31 06:55 | disposition home or self-care (01) ==
PROVIDERS: Emergency Provider Emergency Medicine; PCP Family Medicine
DX: S42.402A Unspecified fracture of lower end of left humerus, initial encounter for closed fracture (principal); W17.89XA Other fall from one level to another, initial encounter
CPT/HCPCS: 29105; 73080; 99283; 99284

== ENCOUNTER → 2023-12-22 10:39 | Outpatient (CLI) | payer OTHER, MEDICAID, SELFPAY ==
[2021-12-26 16:09] VITALS: BMI 24.0
== END ==
PROVIDERS: PCP Family Medicine; Visit Provider Nurse Practitioner Family
DX: J02.9 Acute pharyngitis, unspecified (principal)
CPT/HCPCS: 87070; 87147; 87880

== ENCOUNTER 2024-01-30 07:11 | Emergency (ER) | payer OTHER, MEDICAID, SELFPAY ==
[2021-12-26 16:09] VITALS: BMI 24.0
[2024-01-30 07:19] VITALS: PULSE 75; O2SAT 98
--- NOTE | 2024-01-30 07:19 | DI.RAD.S_ITS ---
PROCEDURE: XR ANKLE RT MIN 3V INDICATIONS: fall TECHNIQUE: 3 views of the ankle were acquired. COMPARISON: None. FINDINGS: Bones: Oblique fracture of the distal fibula at the level of the syndesmosis. Ankle mortise is maintained. Soft tissues: Large tibiotalar joint effusion. Achilles tendon appears normal. Subcutaneous swelling about the ankle joint. IMPRESSION: Oblique fracture of the distal fibula at the level of the syndesmosis. No unstable fracture features. Dictated by: Cornelio Mccrary M.D. on 01/30/2024 at 8:16 Approved by: Cornelio Mccrary M.D. on 01/30/2024 at 8:17
[2024-01-30 07:23] VITALS: BP 118/56; PULSE 73; RESP 18; TEMP 36.8; O2SAT 99; BMI 23.3
[2024-01-30 07:30] VITALS: PULSE 71; O2SAT 99
--- NOTE | 2024-01-30 07:46 | ED.LOWEXIN ---
HPI - Extremity Injury (Lower) General Chief Complaint: Extremity Injury, Lower Stated Complaint: r ankle injury Time Seen by Provider: 01/30/24 07:15 Source: patient Mode of arrival: Family Vehicle History of Present Illness HPI Narrative: 38-year-old female no reported medical issues, was hiking/jumped while climbing in inverted her ankle. She has had pain swelling and discomfort since in the ankle and foot. She is little bit of bruising. Patient denies any other injuries. No numbness tingling or weakness. Painful to weightbear. Denies any other medical issues, no daily prescriptions. No prior surgeries. Does smoke tobacco, occasional alcohol, no recreational drugs. No cuts or lacerations. Patient does live locally, her primary care is Dr. Boles. Related Data Home Medications Medication Instructions Recorded Confirmed albuterol sulfate inhalation 11/12/19 11/20/21 beclomethasone dipropionate [Qvar] inhalation 11/12/19 11/20/21 citalopram 20 mg tablet 30 mg PO DAILY 11/23/20 11/20/21 Previous Rx's Medication Instructions Recorded triamcinolone acetonide 0.1 % 1 applic topical TID #80 grams 05/12/20 topical cream mupirocin 2 % topical ointment 1 applic topical TID wound 07/01/21 infection #15 grams clindamycin HCl 300 mg capsule 300 mg PO Q8H #21 caps 01/19/22 hydrocodone 5 mg-acetaminophen 325 1 tab PO Q6H PRN pain #12 tabs 01/19/22 mg tablet ondansetron 4 mg disintegrating 4 mg PO Q8H PRN nausea and 01/19/22 tablet vomiting #10 tabs amoxicillin 500 mg capsule 500 mg PO BID #20 caps 12/24/23 tramadol 50 mg tablet 50 mg PO Q6H PRN pain #14 tabs 01/30/24 Allergies Allergy/AdvReac Type Severity Reaction Status Date / Time doxycycline Allergy Intermediate Gastrointestinal Verified 12/22/23 10:36 Upset Review of Systems Review of Systems ROS Unobtainable: All systems reviewed & are unremarkable except as noted in HPI and below Patient History Medical History Obstructive sleep apnea, adult (~12/2020) Insomnia due to medical condition History of snoring Fatigue due to sleep pattern disturbance Excessive daytime sleepiness Skin rash Nexplanon insertion Nexplanon removal Healthy adult Acute appendicitis Asthma exacerbation Surgical History No pertinent past surgical history Status post delivery (11/06/11) Family History Father Loud snoring Sleep apnea Son Loud snoring Sleep apnea Social History details: her 9 year old son is on CPAP household members: significant other and children lives independently: Yes caregiver/support person: No housing: apartment education level: college Smoking Status: Current some day smoker Smoking Status: Current some day smoker alcohol intake frequency: 0-2 drinks per day Substance Use Type: does not use Exam Narrative Exam Narrative: GENERAL: Alert and oriented x three, female in mild distress. HEENT: Head normocephalic, atraumatic, EOMI, pupils reactive, face symmetric, moist mucous membranes NECK: Supple, full range of motion CARDIOVASCULAR: Regular rate and rhythm without murmurs, rubs or gallops. RESPIRATORY: Breath sounds equal bilaterally, no wheezes rales or rhonchi. ABDOMEN: Soft, nontender. Normoactive bowel sounds all 4 quadrants. No guarding or rebound, rigidity, no mass : No CVA tenderness EXTREMITIES: Normal range of motion septic ankle. No clubbing. Patient has tenderness over the lateral malleoli as well as the 4th metatarsal of her foot. No other bony tenderness of the proximal fibula or knee. Patient does not have any tenderness of the tibia or medial malleoli. Nontender the calcaneus. She is nontender throughout the foot except for the 4th metatarsal proximally mid shaft. Toes are nontender. Normal sensation throughout. 2+ dorsalis pedis. Patient does have some generalized swelling and ecchymosis of the foot particularly on the lateral side. Neurovascularly intact NEUROLOGICAL: Cranial nerves II through XII grossly intact. Moving all extremities SKIN: Warm, dry, no petechiae, no rashes or lesions. Initial Vital Signs Initial Vital Signs: Vital Signs Pulse Rate 75 01/30/24 07:19 Pulse Oximetry 98 01/30/24 07:19 Oxygen Delivery Method Room Air 01/30/24 07:19 Course Orders Ordered: ED Orders 01/30/24 07:19 XR ankle RT min 3V Stat 01/30/24 08:00 XR foot RT min 3V Stat Vital Signs Vital signs: Vital Signs - 8 hr 01/30/24 07:19 01/30/24 07:23 01/30/24 07:30 Temperature 98.3 F Pulse Rate 75 73 71 Respiratory Rate 18 Blood Pressure 118/56 L Pulse Oximetry 98 99 99 Oxygen Delivery Method Room Air Room Air Room Air MDM - Extremity Injury (Lower) Imaging Data Extremity x-ray #1: My Impression: Distal fibular fracture, well aligned. No other fractures appreciated. Radiologist's Impression: [address] [address] XRay Report Signed Patient: Sarahi De La Fuente MR#: [id number] : 1985 Acct:[id number] Age/Sex: 38 / F Date of Service: 01/30/24 Loc: ED Accession Number: [id number] Procedure: XR ankle RT min 3V Ordering Provider: Shyla Lamas D.O. PROCEDURE: XR ANKLE RT MIN 3V INDICATIONS: fall TECHNIQUE: 3 views of the ankle were acquired. COMPARISON: None. FINDINGS: Bones: Oblique fracture of the distal fibula at the level of the syndesmosis. Ankle mortise is maintained. Soft tissues: Large tibiotalar joint effusion. Achilles tendon appears normal. Subcutaneous swelling about the ankle joint. IMPRESSION: Oblique fracture of the distal fibula at the level of the syndesmosis. No unstable fracture features. Dictated by: Cornelio Mccrary M.D. on 01/30/2024 at 8:16 Approved by: Cornelio Mccrary M.D. on 01/30/2024 at 8:17 Extremity x-ray #2: Radiologist's Impression: Sarahi De La Fuente??38??F??1985 ? Allergy/Adv: doxycycline Close Foot X-Ray (Signed) Himanshu Simmons - 01/30/24 Ankle X-Ray (Signed) Cornelio Mccrary - 01/30/24 Elbow X-Ray (Signed) [place] - 01/31/23 Chest X-Ray (Signed) Serg Avila - 08/06/18 Abdomen/Pelvis CT (Signed) Cliff Gomes - 06/16/18 Launch?[address] [address] XRay Report Signed Patient: Sarahi De La Fuente MR#: [id number] : 1985 Acct:[id number] Age/Sex: 38 / F Date of Service: 01/30/24 Loc: ED Accession Number: [id number] Procedure: XR foot RT min 3V Ordering Provider: Shyla Lamas D.O. PROCEDURE: XR FOOT RT MIN 3V INDICATIONS: right ankle pain and swelling TECHNIQUE: 3 views of the foot were acquired. COMPARISON: None. FINDINGS: Bones: Fracture at the distal fibula. No additional fracture identified. No dislocations. No suspicious bony lesions. Soft tissues: No tibiotalar joint effusion. Achilles tendon appears normal. IMPRESSION: Fracture at the distal fibula. No additional fracture identified in the foot. Dictated by: Himanshu Simmons M.D. on 01/30/2024 at 8:16 Approved by: Himanshu Simmons M.D. on 01/30/2024 at 8:18 MDM Narrative Medical decision making narrative: 38-year-old female with pain over lateral malleoli as well as 4th metatarsal. Patient meets [place] rules for imaging. Right ankle shows distal fibular fracture. Patient is quite tender over the 4th metatarsal so foot x-ray was added on as well. This shows no acute fracture. Plan for ortho boot, crutches, toe-touch weight-bearing and follow up with Orthopedic surgery. Patient is to call today to set up follow-up. Discharge Plan Departure Patient Disposition: Home Clinical Impression: Ankle fracture, right Instructions: DI for Ankle Fracture Activity Restrictions/Additional Instructions: Follow-up with Orthopedic surgery. Please call for an appointment. You may take Tylenol up to a 1000 mg every 6 hours. You may take narcotic pain medication 1-2 tablets every 6 hours as needed. This medication can make you sleepy do not drive, perform hazardous activities or make any major decisions while taking it. This medication will make you constipated please take a stool softener once to twice daily until stools are soft and regular. Prescription sent to [facility]. Splint Care: Keep splint clean and dry. Elevated affected body part to decrease swelling. OK to use ice pack on the affected body part. Use for 15-20 minutes each time, for 5-6x per day. If you develop worsening pain, numbness, tingling, discoloration of the affected body part, loosen the splint by loosening the KENTRELL wrap, and either see your doctor for an urgent re-assessment, or return to the Emergency Department. Return to the Emergency Department for any new or worsening symptoms. Prescriptions: New tramadol 50 mg tablet 50 mg PO Q6H PRN (Reason: pain) Qty: 14 0RF No Action triamcinolone acetonide 0.1 % cream 1 applic TOP TID Qty: 80 1RF mupirocin 2 % ointment 1 applic topical TID Qty: 15 0RF amoxicillin 500 mg capsule 500 mg PO BID Qty: 20 0RF beclomethasone dipropionate INHALATION albuterol sulfate inhalation clindamycin HCl 300 mg capsule 300 mg PO Q8H Qty: 21 0RF hydrocodone-acetaminophen 5-325 mg tablet 1 tab PO Q6H PRN (Reason: pain) Qty: 12 0RF ondansetron 4 mg tablet,disintegrating 4 mg PO Q8H PRN (Reason: nausea and vomiting) Qty: 10 0RF citalopram 20 mg tablet 30 mg PO DAILY Referrals: Jian Campoverde MD [Physician] - Kellie Boles MD [Primary Care Provider] - Stand Alone Forms: Patient Portal/API
--- NOTE | 2024-01-30 07:55 | PC.NURSE ---
Pt last took ibuprofen at 1100 last night. Denies wanting any tylenol/ibuprofen currently. CMS intact, pt able to partially move foot.
--- NOTE | 2024-01-30 08:00 | DI.RAD.S_ITS ---
PROCEDURE: XR FOOT RT MIN 3V INDICATIONS: right ankle pain and swelling TECHNIQUE: 3 views of the foot were acquired. COMPARISON: None. FINDINGS: Bones: Fracture at the distal fibula. No additional fracture identified. No dislocations. No suspicious bony lesions. Soft tissues: No tibiotalar joint effusion. Achilles tendon appears normal. IMPRESSION: Fracture at the distal fibula. No additional fracture identified in the foot. Dictated by: Himanshu Simmons M.D. on 01/30/2024 at 8:16 Approved by: Himanshu Simmons M.D. on 01/30/2024 at 8:18
[2024-01-30 08:57] VITALS: RESP 17
== END 2024-01-30 08:58 | disposition home or self-care (01) ==
PROVIDERS: Emergency Provider Emergency Medicine; PCP Family Medicine
DX: S82.891A Other fracture of right lower leg, initial encounter for closed fracture (principal); X50.1XXA Overexertion from prolonged static or awkward postures, initial encounter
CPT/HCPCS: 73610; 73630; 99283

== ENCOUNTER 2024-05-29 14:19 | Day surgery (SDC) | payer OTHER, MEDICAID, SELFPAY ==
[2021-12-26 16:09] VITALS: BMI 24.0
[2024-05-27 09:51] VITALS: BMI 23.1
[2024-05-29] MEDS: LACTATED RINGERS 1,000 ML 42 ML IV (14:27)
[2024-05-29 14:35] VITALS: BMI 22.6
[2024-05-29 14:44] VITALS: BP 120/70; PULSE 86; RESP 16; TEMP 36.7; O2SAT 98
[2024-05-29] MEDS: ACETAMINOPHEN 325 MG TABLET 975 MG PO (14:45)
--- NOTE | 2024-05-29 15:18 | PM.PREOP ---
Pre-operative Note Interval Note History & Physical reviewed/Exam performed by Physician: Yes Changes to H&P: No
--- NOTE | 2024-05-29 15:28 | SUR.OPER ---
Lithotomy on padded OR bed, head on pillow, arms secured on padded arm boards at <90 degrees abduction. Legs secured in padded yellow fins stirrups.
[2024-05-29] MEDS: BUPIVACAINE 0.25% (PF) VIAL 30 ML INJ (15:54)
[2024-05-29] MEDS: BUPIVACAINE LIPOSOME 266 MG/20 ML VIAL INJ (15:55)
[2024-05-29] MEDS: DIBUCAINE 1% OINT 28 GM 1 APPLIC TOP (16:01)
[2024-05-29 16:20] VITALS: BP 166/107; PULSE 77; RESP 18; TEMP 36.5; O2SAT 100
[2024-05-29 16:25] VITALS: BP 150/101; PULSE 99; RESP 16; O2SAT 99
[2024-05-29 16:30] VITALS: BP 146/93; PULSE 94; RESP 12; TEMP 36.4; O2SAT 99
[2024-05-29 16:36] VITALS: BP 140/91; PULSE 95; RESP 16; O2SAT 99
[2024-05-29] MEDS: OXYCODONE IR 5 MG TABLET PO (16:57)
--- NOTE | 2024-05-29 18:18 | P.OP_ITS ---
Operative Date/Time/Diagnoses Date of procedure: 05/29/24 Time of procedure: 18:18 Pre-op diagnosis: Internal hemorrhoids Post-op diagnosis: same Procedure & Clinicians Procedure: Excisional hemorrhoidectomy Same procedure as scheduled: Yes Indications: 38-year-old woman with symptomatic prolapsing hemorrhoids with internal and external component. Surgeon: Moe Graham Anesthesia Type: General Operative Notes Findings: Grade 2 hemorrhoids with external and internal component Specimen(s): none sent Estimated Blood Loss (mL): 10 Procedure in detail: The patient was brought to the operating room placed supine on the table. Bilateral lower extremity compression devices were applied. General anesthesia was induced and they were intubated with an endotracheal tube. They were then placed into lithotomy position. They were then prepped and draped in usual sterile fashion. Time-out was performed. Rectal block was performed by injecting 20 mL of Exparel into the intersphincteric groove. An internal examination of the anal canal was made. The right anterior and left lateral hemorrhoid pedicles prolapsed and had both internal and external component.. Beginning with the left lateral pedicle it was grasped elevated and excised with electrocautery off the internal sphincter. The mucosal defect was then closed with a running 3-0 Vicyrl suture. Hemostasis was checked. The procedure was then repeated for the right anterior. Wound was irrigated with saline. Gelfoam coated in Dibucaine ointment 1% was then placed into the anal canal. Sponge and instrument counts were correct at the end of the procedure. They emerged from anesthesia were extubated and transferred to the postoperative care unit in st able condition. Complications: none Post-operative Condition: stable Disposition: same day surgery
== END 2024-05-29 17:21 | disposition home or self-care (01) ==
PROVIDERS: PCP Family Medicine; Referring Provider Surgery; Visit Provider Surgery
PROC: (CPT 46255; principal; 2024-05-29 15:45)
DX: K64.1 Second degree hemorrhoids (principal); G47.33 Obstructive sleep apnea (adult) (pediatric)
CPT/HCPCS: 46255; C9290; J1100; J2405; J2704; J3010

== ENCOUNTER 2024-06-26 08:49 | Emergency (ER) | payer OTHER, MEDICAID, SELFPAY ==
[2021-12-26 16:09] VITALS: BMI 24.0
[2024-06-26 08:50] VITALS: BP 124/87; PULSE 55; RESP 17; TEMP 36.9; O2SAT 99; BMI 22.6
[2024-06-26 09:00] VITALS: PULSE 68; O2SAT 98
[2024-06-26 09:01] VITALS: BP 124/87; PULSE 68; O2SAT 99
--- NOTE | 2024-06-26 09:02 | PC.NURSE ---
Pt reports right shoulder/arm/back pain starting last night. Pt reports having shot on Saturday. Muscle tension noted to right shoulder; tender to palpation. Pt denies lifting or doing anything abnormal to cause pain. Pt states she took OTC and oxycodone w/ no pain relief.
--- NOTE | 2024-06-26 09:16 | ED.CHESTPAIN ---
HPI - Chest Pain General Chief Complaint: Chest Pain Stated Complaint: chest/r shoulder pain, [facility] Time Seen by Provider: 06/26/24 08:55 Source: patient, RN notes reviewed and old records reviewed Mode of arrival: Ambulatory Limitations: no limitations History of Present Illness HPI narrative: 39-year-old female with complaint of right posterior thoracic pain radiating to the right shoulder and anterior chest. Patient states it started yesterday. States it started in the front her friend that she was talking to was trying to rub it out and rubbing her back as well felt not became increasingly painful. She states she did have little bit of paresthesias yesterday down her right arm but no weakness. She states paresthesias resolved she states it was painful she takes a deep breath but also painful if she lifts or moves her arms and particularly abduction of the shoulder. She has not had similar symptoms in the past. She does not recall any trauma or injuries. She did have a COVID booster on Saturday but states that was not in the left side. Patient has not had any weakness. No rash or skin changes. She states no daily medications she has been taking [place] occasionally for a hemorrhoidectomy at the beginning of May. Denies fevers or chills, no cold cough or congestion. No shortness of breath. No nausea or vomiting, no diaphoresis. No GI or urinary changes no swelling of her extremities including her right upper extremity. She states no daily medications, no estrogen or hormones. She does use tobacco daily, occasional alcohol, no IV or recreational drugs. Allergic to doxycycline. Patient was at walk-in clinic and referred here for cardiac evaluation. Dr. Boles is her primary care physician. Patient states no family history of embolic, cardiac or pulmonary history. Related Data Home Medications Medication Instructions Recorded Confirmed cholecalciferol (vitamin D3) PO 05/08/24 06/26/24 Previous Rx's Medication Instructions Recorded acetaminophen 500 mg capsule 1,000 mg (2 x 500 mg) PO Q6H PRN 05/29/24 pain #60 caps docusate sodium 100 mg capsule 100 mg PO BID #30 caps 05/29/24 (Colace) oxycodone 5 mg tablet 5 mg PO Q6H PRN pain #30 tabs 05/29/24 polyethylene glycol 3350 17 17 g PO DAILY #510 grams 05/29/24 gram/dose oral powder (Miralax) wheat dextrin 3 gram/3.8 gram oral 3 g PO BID #144 grams 05/29/24 powder (Benefiber Sugar Free (dextrin)) cyclobenzaprine 10 mg tablet 10 mg PO Q8H PRN muscle spasm #10 06/26/24 tabs Allergies Allergy/AdvReac Type Severity Reaction Status Date / Time doxycycline Allergy Intermediate Gastrointestinal Verified 06/26/24 09:21 Upset Review of Systems Review of Systems ROS Unobtainable: All systems reviewed & are unremarkable except as noted in HPI and below Patient History Medical History Obstructive sleep apnea, adult (~12/2020) Insomnia due to medical condition History of snoring Fatigue due to sleep pattern disturbance Excessive daytime sleepiness Skin rash Nexplanon insertion Nexplanon removal Healthy adult Acute appendicitis Asthma exacerbation Surgical History Hx of appendectomy Status post delivery (11/06/11) Family History Father Loud snoring Sleep apnea Son Loud snoring Sleep apnea Social History marital status: unmarried,single details: her 9 year old son is on CPAP number of children: 2 household members: children lives independently: Yes caregiver/support person: No housing: apartment education level: college occupational status: employed Smoking Status: Current some day smoker alcohol intake: current substance use type: does not use Smoking Status: Current some day smoker alcohol intake frequency: 0-2 drinks per day Substance Use Type: does not use Exam Narrative Exam Narrative: GENERAL: Alert and oriented x three, female in mild distress. HEENT: Head normocephalic, atraumatic, EOMI, pupils reactive, face symmetric, moist mucous membranes NECK: Supple, full range of motion CARDIOVASCULAR: Regular rate and rhythm without murmurs, rubs or gallops. RESPIRATORY: Breath sounds equal bilaterally, no wheezes rales or rhonchi. ABDOMEN: Soft, nontender. Normoactive bowel sounds all 4 quadrants. No guarding or rebound, rigidity, no mass : No CVA tenderness BACK: No cervical, thoracic vertebral point tenderness. Patient has tenderness in the soft tissue medial to the scapula with little bit of a knot in the muscles, patient's pain is increased significantly when I palpate this area, Patient has normal range of motion. There is no warmth erythema or skin changes. Patient's gait is normal. 5/5 muscle strength bilateral upper extremities. 2+ radial pulse. No swelling bilateral upper extremities. Sensation intact upper extremities bilaterally. EXTREMITIES: Normal range of motion, no clubbing or edema. Neurovascularly intact NEUROLOGICAL: Cranial nerves II through XII grossly intact. Moving all extremities SKIN: Warm, dry, no petechiae, no rashes or lesions. Initial Vital Signs Initial Vital Signs: Vital Signs Temperature 98.4 F 06/26/24 08:50 Pulse Rate 55 L 06/26/24 08:50 Respiratory Rate 17 06/26/24 08:50 Blood Pressure 124/87 06/26/24 08:50 Pulse Oximetry 99 06/26/24 08:50 Oxygen Delivery Method Room Air 06/26/24 08:50 Course Orders Ordered: Discontinued Medications Ketorolac Tromethamine (Ketorolac 30 Mg/Ml Vial) 30 mg IM NOW ONE Stop: 06/26/24 09:26 Last Admin: 06/26/24 09:30 Dose: 30 mg Documented By: DARRYL Vital Signs Vital signs: Vital Signs - 8 hr 06/26/24 08:50 06/26/24 09:00 06/26/24 09:01 Temperature 98.4 F Pulse Rate 55 L 68 68 Respiratory Rate 17 Blood Pressure 124/87 Pulse Oximetry 99 98 99 Oxygen Delivery Method Room Air 06/26/24 09:01 Temperature Pulse Rate Respiratory Rate Blood Pressure 124/87 Pulse Oximetry Oxygen Delivery Method MDM - Chest Pain MDM Narrative Medical decision making narrative: 39-year-old female with easily reproducible discomfort on palpation of the soft tissue in the upper thoracic region just medial to the scapula, patient's pain radiates to her shoulder and anterior chest with this. Patient was sent for walk-in clinic for cardiac workup I discussed I feel this is most likely musculoskeletal but did offer further workup including EKG and lab work, patient defers. We will give short course of muscle relaxer and discussed using NSAIDs she still has [place] she can take this as needed. Discussed narcotics with a muscle relaxer can increase sedation to proceed with caution. Discussed return precautions all questions answered. Discharge Plan Departure Patient Disposition: Home Clinical Impression: Acute right-sided thoracic back pain Activity Restrictions/Additional Instructions: Your exam today is consistent with musculoskeletal source of your symptoms. I would recommend stretching as tolerated. You can take ibuprofen up to 600 mg every 6 hours as needed and/or acetaminophen a 1000 mg every 6 hours as needed. You can take muscle relaxer 1 tablet every 8 hours as needed. Prescription sent to [facility] in [place] Please return if you have rapidly worsening symptoms, new numbness tingling or weakness, new or worsening chest pain, shortness of breath, lightheadedness or passing out, fevers or other new or concerning changes. Prescriptions: New cyclobenzaprine 10 mg tablet 10 mg PO Q8H PRN (Reason: muscle spasm) Qty: 10 0RF No Action cholecalciferol (vitamin D3) PO acetaminophen 500 mg capsule 1,000 mg PO Q6H PRN (Reason: pain) Qty: 60 0RF Benefiber Sugar Free (dextrin) 3 gram/3.8 gram powder 3 g PO BID Qty: 144 0RF Rx Instructions: mix into at least 4 oz water or juice before administering docusate sodium [Colace] 100 mg capsule 100 mg PO BID Qty: 30 0RF polyethylene glycol 3350 [Miralax] 17 gram/dose powder 17 g PO DAILY Qty: 510 0RF oxycodone 5 mg tablet 5 mg PO Q6H PRN (Reason: pain) Qty: 30 0RF Referrals: Kellie Boles MD [Primary Care Provider] - Stand Alone Forms: Patient Portal/API
[2024-06-26 09:30] VITALS: PULSE 61; O2SAT 99
[2024-06-26] MEDS: KETOROLAC 30 MG/ML VIAL IM (09:30)
[2024-06-26 09:35] VITALS: RESP 16
== END 2024-06-26 09:36 | disposition home or self-care (01) ==
PROVIDERS: Emergency Provider Emergency Medicine; PCP Family Medicine
DX: M54.6 Pain in thoracic spine (principal); R07.9 Chest pain, unspecified
CPT/HCPCS: 96372; 99283; J1885

== ENCOUNTER → 2024-09-21 09:18 | Outpatient (CLI) | payer OTHER, SELFPAY ==
[2021-12-26 16:09] VITALS: BMI 24.0
[2024-09-21 15:01] LABS: Rubella Antibody IgG 29.6 IU/mL (>15)
[2024-09-22 08:41] LABS: Rubeola Measles IgG 43.7 AU/mL (Immune >16.4)
== END ==
PROVIDERS: PCP Family Medicine; Referring Provider Family Medicine; Visit Provider Family Medicine
DX: Z01.84 Encounter for antibody response examination (principal)
CPT/HCPCS: 36415; 86735; 86762; 86765